=== PATIENT | male | born 1960 | race Caucasian/White ===

== ENCOUNTER 2017-09-19 12:53 | Observation (INO) ==
[2017-09-19] MEDS ORDERED: Ondansetron 4 MG/2 ML VIAL IVP ONE (13:27)
--- NOTE | 2017-09-19 13:27 | Emergency Department Note ---
Disposition Clinical Impression: Hypertensive urgency Dyspnea Qualifiers: Dyspnea type: shortness of breath Qualified Code(s): R06.02 - Shortness of breath Disposition: Admitted As Inpatient Condition: Fair Time of Disposition: 18:28 General Adult HPI - General Chief complaint: ED Shortness of Breath/Dyspnea Stated complaint: hypertension Time Seen by Provider: 09/19/17 12:55 Source: patient Limitations: no limitations Nursing Notes Reviewed: Yes Vital Signs Reviewed: Yes - History of Present Illness HPI Narrative: Mr. Love, 57-year-old male, presents from home for evaluation of dyspnea, back pain, lower extremity pain. Onset 3+ weeks ago. He was seen and evaluated at the [place] urgent care 2 days ago, told he had congestive heart failure, discharged home. Patient's and daughter note he has unilateral swelling in his left lower extremity for the last several days; results this morning. Patient has been having difficulty walking because of his lower extremity pain described as muscularpain in the thighs and calves. PMH: CAD with ACS status post MT with stent and 6 vessel CABG. COPD, hypertension, hyperlipidemia Patient has no history of DVT or PE. Platelet: Aspirin 81 Anticoagulant: None Pain Scale: 10 - Related Data Home Medications Medication Instructions Recorded Confirmed Amoxicillin 500 mg PO TID 09/19/17 09/19/17 Aspirin Enteric Coated [Aspirin EC] 81 mg PO DAILY 09/19/17 09/19/17 Potassium Chloride [Klor-Con 10] 10 meq PO DAILY 09/19/17 09/19/17 Sertraline [Zoloft] 150 mg PO DAILY 09/19/17 09/19/17 Terazosin HCl 2 mg PO HS 09/19/17 09/19/17 hydroCHLOROthiazide 25 mg PO DAILY 09/19/17 09/19/17 [Hydrochlorothiazide] Allergies Allergy/AdvReac Type Severity Reaction Status Date / Time nicotine AdvReac Unknown Verified 09/19/17 18:06 simvastatin [From Zocor] AdvReac Unknown Verified 09/19/17 18:06 All systems ED: reviewed and negative except as stated. Review of Systems: As Per HPI Past Medical History - Past Medical History Medical history: Reports: COPD, hyperlipidemia, hypertension, myocardial infarction Psychiatric history: Reports: depression - Social History Smoking Status: Current every day smoker Smokeless Tobacco Status: No Alcohol use: Reports: none Drug use: Reports: none Physical Exam Vital Signs Reviewed General: Patient is alert, oriented, and in no acute distress. HEENT: No facial asymmetry. Head is normocephalic and atraumatic. Oral mucosa moist. Trachea midline. Cardiovascular: Heart regular rate and rhythm without clicks, rubs, gallops, or murmurs. No JVD. PMI nondisplaced. No pedal edema. Bilateral posterior tibial pulses 2/4 and equal. Respiratory: Symmetric chest rise with good respiratory effort. Bilateral breath sounds are clear without wheezing, crackles, or rhonchi. Abdomen: Bowel sounds present normoactive x-4 quadrants. Abdomen is soft, nondistended, and nontender. Musculoskeletal: Muscle strength 5/5 and symmetric bilaterally in upper extremities. Neuro: Cranial nerves II through XII without deficit. Sensation light touch intact. Skin: Cool, dry, intact. Mottling over patient's lower extremities. Psych: Patient's affect is appropriate for situation. - General Limitations: no limitations General appearance: alert, in no apparent distress Course Course Narrative: Patient is a known vasculopath with coronary artery disease. He has no history of congestive heart failure. Clinically, my concerns today are DVT, PE, ACS, possible aortic pathology given his back pain and lower extremity symptoms. D-dimer is elevated at slightly above 3000. I discusses the patient is family. They are agreeable to CTA chest, abdomen, pelvis. Will provide 5 mg labetalol and IV fluids. His creatinine is slightly elevated at 1.51 however, concern for PE and/or aortic pathology is high and thus will continue with CTA. CTA chest abdomen pelvis shows no PE. Patient does have new diagnosis of 4.2 cm AAA. Venous Doppler bilateral lower extremities is negative for DVT. At this juncture, I do not have an expiration of the patient's dyspnea or lower extremity pain. Patient and family are agreeable to admission to the hospital for continued evaluation and management. At minimum, he has hypertensive urgency and will need continued therapy and modification of his home medications. I discussed the patient with the admitting hospitalist, Dr. Tirado, who agrees to accept the patient for continued evaluation and management. Vital Signs Temperature 98 F 09/19/17 12:54 Pulse Rate 74 09/19/17 12:54 Respiratory Rate 18 09/19/17 12:54 Blood Pressure 183/94 09/19/17 12:54 O2 Sat by Pulse Oximetry 99 09/19/17 12:54 Temperature 98.2 F 09/19/17 18:20 Pulse Rate 79 09/19/17 18:20 Respiratory Rate 18 09/19/17 18:20 Blood Pressure 180/100 09/19/17 18:20 O2 Sat by Pulse Oximetry 92 09/19/17 18:20 Oxygen Delivery Oxygen Delivery Room Air Medical Decision Making - Lab Data Result diagrams: 09/19/17 13:40 09/19/17 13:40 Lab Results 09/19/17 09/19/17 09/19/17 Range/Units 13:40 13:40 13:40 WBC 12.0 H (4.3-11.1) K/mcL RBC 5.62 H (4.19-5.50) M/mcL Hgb 15.3 (12.9-16.9) g/dL Hct 44.8 (37.5-50.1) % MCV 79.7 L (83.0-100.0) fL MCH 27.2 L (28.0-33.3) pg MCHC 34.2 (31.6-35.5) g/dL RDW 13.2 (11.5-14.5) % Plt Count 211 (140-400) K/mcL MPV 9.3 L (9.4-12.4) fL Immature Gran % 0.8 (0-4) % Seg Neutrophils % 81.7 % Lymphocytes % 10.4 % Monocytes % 5.2 % Eosinophils % 1.5 % Basophils % 0.4 % Neutrophils # 9.8 H (1.6-8.9) K/mcL Lymphocytes # 1.3 (0.6-4.6) K/mcL Monocytes # 0.6 (0.0-1.3) K/mcL Eosinophils # 0.2 (0.0-0.6) K/mcL Basophils # 0.1 (0.0-0.2) K/mcL D-Dimer 3500 H (0-500) ng/mLFEU Sodium 136 (136-145) mEq/L Potassium 3.9 (3.5-4.5) mEq/L Chloride 103 (98-109) mEq/L Carbon Dioxide 21 (19-29) mEq/L BUN 17 (8-26) mg/dL Creatinine 1.51 H (0.72-1.25) mg/dL Est GFR ( Amer) 58 L (> 60) Est GFR (Non-Af Amer) 48 L (> 60) BUN/Creatinine Ratio 11 (6-26) Glucose 195 H (70-99) mg/dL Calculated Osmolality 289 (280-300) Calcium 9.9 (8.6-10.8) mg/dL Troponin I (0-0.03) ng/mL B-Natriuretic Peptide (0-100) pg/mL Urine Color (Yellow) Urine Clarity (Clear) Urine pH (5.0-8.0) pH Units Ur Specific [place] (1.010-1.025) Urine Protein (Neg-Trace) mg/dL Urine Glucose (UA) (Normal) mg/dL Urine Ketones (Negative) mg/dL Urine Blood (Negative) Urine Nitrite (Negative) Urine Bilirubin (Negative) Urine Urobilinogen (Normal) mg/dL Ur Leukocyte Esterase (Negative) Urine Microscopic RBC (0-3) per hpf Urine Microscopic WBC (0-3) per hpf Ur Squamous Epith Cells (None-Few) per lpf Urine Bacteria (None-Few) per hpf Hyaline Casts (None-Few) per lpf Ur Culture Indicated? (NO) 09/19/17 09/19/17 09/19/17 Range/Units 13:40 13:40 15:18 WBC (4.3-11.1) K/mcL RBC (4.19-5.50) M/mcL Hgb (12.9-16.9) g/dL Hct (37.5-50.1) % MCV (83.0-100.0) fL MCH (28.0-33.3) pg MCHC (31.6-35.5) g/dL RDW (11.5-14.5) % Plt Count (140-400) K/mcL MPV (9.4-12.4) fL Immature Gran % (0-4) % Seg Neutrophils % % Lymphocytes % % Monocytes % % Eosinophils % % Basophils % % Neutrophils # (1.6-8.9) K/mcL Lymphocytes # (0.6-4.6) K/mcL Monocytes # (0.0-1.3) K/mcL Eosinophils # (0.0-0.6) K/mcL Basophils # (0.0-0.2) K/mcL D-Dimer (0-500) ng/mLFEU Sodium (136-145) mEq/L Potassium (3.5-4.5) mEq/L Chloride (98-109) mEq/L Carbon Dioxide (19-29) mEq/L BUN (8-26) mg/dL Creatinine (0.72-1.25) mg/dL Est GFR ( Amer) (> 60) Est GFR (Non-Af Amer) (> 60) BUN/Creatinine Ratio (6-26) Glucose (70-99) mg/dL Calculated Osmolality (280-300) Calcium (8.6-10.8) mg/dL Troponin I 0.02 (0-0.03) ng/mL B-Natriuretic Peptide 101 H (0-100) pg/mL Urine Color Yellow (Yellow) Urine Clarity Clear (Clear) Urine pH 6.0 (5.0-8.0) pH Units Ur Specific [place] > 1.030 H (1.010-1.025) Urine Protein 30 H (Neg-Trace) mg/dL Urine Glucose (UA) Normal (Normal) mg/dL Urine Ketones Trace H (Negative) mg/dL Urine Blood Negative (Negative) Urine Nitrite Negative (Negative) Urine Bilirubin Negative (Negative) Urine Urobilinogen Normal (Normal) mg/dL Ur Leukocyte Esterase Negative (Negative) Urine Microscopic RBC 0-3 (0-3) per hpf Urine Microscopic WBC 0-3 (0-3) per hpf Ur Squamous Epith Cells Moderate H (None-Few) per lpf Urine Bacteria None Seen (None-Few) per hpf Hyaline Casts None Seen (None-Few) per lpf Ur Culture Indicated? NO (NO) Attestation Statement - Attestation Attestation: I, Reymundo Wilson, examined this patient and my medical decision-making was reviewed with the HEALTH INFORMATION ASSISTANT/PA/Advanced Practice Nurse/Resident Physician. I agree with the documented findings, disposition and treatment plan as described except to the extent set forth below. 57-year-old male presents emergency Department with concerns of dyspnea, back pain, bilateral lower extremity pain. Patient states symptoms have been increasing over the past 2 weeks. States he is unable to perform daily activities at home secondary to shortness of breath as well as pain in his bilateral lower extremities. Denies recent trauma, denies previous similar symptoms. Denies fever, chills, nausea, vomiting, diarrhea. Patient had a negative initial troponin. He had an elevated d-dimer we did a CTA of his chest abdomen and pelvis to evaluate for aortic dissection as well as PE. CT scan showed a 4.2 cm abdominal aneurysm but no evidence of dissection. Bilateral Doppler of the lower extremity showed no evidence of venous thrombi embolism.
[2017-09-19 13:47] LABS: Basophils # 0.1 K/mcL (0.0-0.2); Basophils % 0.4 %; Eosinophils # 0.2 K/mcL (0.0-0.6); Eosinophils % 1.5 %; Hematocrit 44.8 % (37.5-50.1); Hemoglobin 15.3 g/dL (12.9-16.9); Immature Granulocytes % 0.8 % (0-4); Lymphocytes # 1.3 K/mcL (0.6-4.6); Lymphocytes % 10.4 %; Mean Corpuscular HGB Conc 34.2 g/dL (31.6-35.5); Mean Corpuscular Hemoglobin 27.2 pg (28.0-33.3); Mean Corpuscular Volume 79.7 fL (83.0-100.0); Mean Platelet Volume 9.3 fL (9.4-12.4); Monocytes # 0.6 K/mcL (0.0-1.3); Monocytes % 5.2 %; Neutrophils # 9.8 K/mcL (1.6-8.9); Platelet Count 211 K/mcL (140-400); Red Blood Count 5.62 M/mcL (4.19-5.50); Red Cell Distribution Width 13.2 % (11.5-14.5); Segmented Neutrophils % 81.7 %
[2017-09-19 13:59] LABS: Calcium 9.9 mg/dL (8.6-10.8); Potassium 3.9 mEq/L (3.5-4.5)
[2017-09-19] MEDS ORDERED: 0.9 % Sodium Chloride 1,000 ML IVC ONE (14:08)
[2017-09-19] MEDS ORDERED: *HR* Labetalol 100 MG/20 ML MDV IVP ONE (14:08)
[2017-09-19 15:32] LABS: Bilirubin,Urine Negative (Negative); Blood,Urine Negative (Negative); Clarity,Urine Clear (Clear); Color,Urine Yellow (Yellow); Glucose,Urine (UA) Normal (Normal); Ketones,Urine Trace mg/dL (Negative); Leukocyte Esterase,Urine Negative (Negative); Nitrite,Urine Negative (Negative); Protein,Urine 30 mg/dL (Neg-Trace); Specific Gravity,Urine > 1.030 (1.010-1.025); Urobilinogen,Urine Normal (Normal)
[2017-09-19 15:35] LABS: Bacteria,Urine None Seen per hpf (None-Few); Hyaline Casts,Urine None Seen per lpf (None-Few); RBC,Urine 0-3 per hpf (0-3); Squamous Epithelial Cell,Urine Moderate per lpf (None-Few); WBC,Urine 0-3 per hpf (0-3)
[2017-09-19] MEDS ORDERED: Acetaminophen 325 MG TABLET PO PRN (21:08)
[2017-09-19] MEDS ORDERED: Naloxone 0.4 MG/ML INJ IVP PRN (21:08)
[2017-09-19] MEDS ORDERED: Ondansetron 4 MG/2 ML VIAL IVP PRN (21:08)
[2017-09-19] MEDS ORDERED: *HR* Morphine 2 MG/ML SYRINGE IVP PRN (21:08)
--- NOTE | 2017-09-19 21:33 | Internal Med History&Physical ---
<SariahmannhomerKole real - Last Filed: 09/19/17 23:20> Date of Encounter: 09/19/17 Time of Encounter: 19:30 Assessment and Plan (1) Hypertensive urgency Current visit: Yes Status: Acute Acute HTN on admission. Pt. reports BP of 210/109 taken by glass setter. Denies previous hx of occurrence. Pt. also reports SOB/dyspnea w/HTN sx. Pt. has hx of previous MIs in 2002 w/stent x2 and 2009 w/sextuple bypass. Labetolol given in ED. Monitor patient's vital signs. BP at 21:30 was 171/104. Continue patient's terazosin and hydrochlorothiazide in a.m. Add lasix 20 mg IVP NOW. Will add Labetolol 10 mg IVP Q2HR PRN. Add Norvasc 5 mg PO now. Continuous cardiac telemetry. Pt. is at high risk for cardiac event and further morbidity based on current sx, hx of previous MIs, and risk factors of HLD, HTN, and tobacco abuse. Observation. (2) Dyspnea Current visit: Yes Status: Acute Acute SOB/dyspnea for the past two days. Pt. was dx at [facility] w/CHF two days ago and discharged. Denies use of home O2. Current SpO2 is 93% on RA. Denies SOB during exam. O2 and SpO2 monitoring PRN. Qualifiers: Dyspnea type: shortness of breath Qualified Code(s): R06.02 - Shortness of breath; R06.00 - Dyspnea, unspecified; R06.01 - Orthopnea (3) Abdominal aortic aneurysm (AAA) Current visit: Yes Status: Acute CTA of the abdomen today shows moderate severe amount of soft plaque is identified within the abdominal aorta which places her at risk for embolism. There is evidence of infrarenal abdominal aortic aneurysm measuring 4.2 cm w/ recommendation for f/u every year and recommendation for vascular consult. Vascular consult ordered. Qualifiers: Presence of rupture: without rupture Qualified Code(s): I71.4 - Abdominal aortic aneurysm, without rupture (4) Elevated d-dimer Current visit: Yes Status: Acute Acutely elevated D-dimer of 3500 on admission. Concern is for PE d/t SOB/ dyspnea or DVT d/t LE pain. CTA of chest today shows no evidence of pulmonary embolism or acute pulmonary abnormality. Bilateral venous Doppler duplex imaging shows normal superficial and deep exam. (5) GERD (gastroesophageal reflux disease) Current visit: Yes Status: Chronic Hx of chronic GERD. Pt. states he takes medicine as needed. IVP Zofran Q6 PRN. Prilosec ordered PO daily. Qualifiers: Esophagitis presence: esophagitis presence not specified Qualified Code(s) : K21.9 - Gastro-esophageal reflux disease without esophagitis (6) Tobacco abuse Current visit: Yes Status: Chronic Hx of chronic tobacco abuse. Pt. reports smoking 1/2 PPD. Denies interest in currently quitting. 14 mg nicotine patch ordered daily. (7) COPD (chronic obstructive pulmonary disease) Current visit: Yes Status: Chronic Hx of chronic COPD d/t tobacco abuse. Stable. Pt. denies use of home O2 and current SpO2 is 93% on RA. Denies SOB during exam. O2 and SpO2 monitoring PRN. Qualifiers: COPD type: unspecified COPD Qualified Code(s): J44.9 - Chronic obstructive pulmonary disease, unspecified (8) HLD (hyperlipidemia) Current visit: Yes Status: Chronic Hx of chronic HLD. Pt. reports taking Zocor previously but does not currently take statin. Lipid panel in a.m. labs. Qualifiers: Hyperlipidemia type: pure hypercholesterolemia Qualified Code(s): E78.00 - Pure hypercholesterolemia, unspecified; E78.0 - Pure hypercholesterolemia (9) HTN (hypertension) Current visit: Yes Status: Chronic Hx of chronic HTN. Monitor pt. and VS. Continue pts Zosyn and hydrochlorothiazide. Qualifiers: Hypertension type: essential hypertension Qualified Code(s): I10 - Essential (primary) hypertension (10) Previous myocardial infarction older than 8 weeks Current visit: Yes Status: Resolved Hx of chronic MIs in 2002 w/placement of stents x2 and in 2009 which required sextuple bypass. Pt. denies chest pain or palpitations. Initial troponin 0.02. Will trend x2. Continuous cardiac telemetry. Continue patient's aspirin therapy , potassium chloride, hydrochlorothiazide, and terazosin. (11) CHF (congestive heart failure) Current visit: Yes Status: Chronic Pt. recently diagnosed w/CHF two days ago at [facility] and discharged home. No pedal edema on exam. BNP ordered. Pt. is SOB most likely d/t COPD and current tobacco abuse. Pt. does not appear fluid overloaded and denies taking lasix. Monitor pt. closely. Qualifiers: Congestive heart failure type: unspecified congestive heart failure type Congestive heart failure chronicity: unspecified congestive heart failure chronicity Qualified Code(s): I50.9 - Heart failure, unspecified (12) DVT prophylaxis Current visit: Yes Status: Acute Heparin 5,000 units SQ Q8 for DVT prophylaxis. Monitor pt. for signs of bleeding. Internal Medicine - H&P: HPI Chief complaint: High Blood Pressure Admitted From: Emergency Dept Plans for Post Hospital Care: Home History of present illness: Mr. Love is a 57 year old male with medical hx of COPD and CHF, HLD, HTN, GERD , and previous myocardial infarctions in 2002 with placement of 2 stents in 2009 with open heart surgery requiring sextuple bypass presents from the ED with chief complaint of high blood pressure that began this morning w/o exertion. Pt. states that his BP taken by glass setter was 210/109. He reports he was SOB/dyspneic as well. He states that he has been nauseous with back pain and bilateral LE pain for 3 weeks. He reports he went to the [facility] urgent care two days ago for same sx and was dx as CHF and discharged. Denies hx of DVT or PE. Pt. also denies recent illness, fever, vomiting, headache, chest pain, palpitations, changes in vision, unusual bleeding, cough, abdominal pain, diarrhea, constipation, dizziness, pre-syncope, or syncope. Past Med Surg Social Fam HX - Past Medical History Source: patient, old records reviewed Medical history: CHF (Recent dx at [facility]), COPD, GERD, hyperlipidemia, hypertension, myocardial infarction (2002 x2 stents, 2009 sextuple bypass) Psychiatric history: depression - Past Surgical History Surgical History: angioplasty/stent (x2), coronary bypass (CABG) (Sextuple bypass) - Social History Smoking Status: Current every day smoker Packs per day: 1/2 PPD Smokeless Tobacco Status: No Alcohol use: none Drug use: none Current living situation: Home, With Family Activity Level: Independent ambulation Recent Out of Country Travel Within the Last 8 Weeks: No Exposure or Possible Exposure to Illness During Travel: No - Family History Father Race: Family Member Ethnicity: Non- Living Status: Age at : 71 Cause of : CHF Hx Family Cardiac Disorders: Yes (CHF, CAD, UT) Hx Family Endocrine Disorder: Yes (DM) Mother Race: Family Member Ethnicity: Non- Living Status: Age at : 75 Cause of : CAD Hx Family Cardiac Disorders: Yes (CAD) Hx Family Endocrine Disorder: Yes (DM) Sister Race: Family Member Ethnicity: Non- Living Status: Still Living Hx Family GI Disorders: Yes (Colitis) Internal Medicine - H&P: Meds Amoxicillin 500 mg PO TID 09/19/17 [History] Aspirin Enteric Coated [Aspirin EC] 81 mg PO DAILY 09/19/17 [History] Potassium Chloride [Klor-Con 10] 10 meq PO DAILY 09/19/17 [History] Sertraline [Zoloft] 150 mg PO DAILY 09/19/17 [History] Terazosin HCl 2 mg PO HS 09/19/17 [History] hydroCHLOROthiazide [Hydrochlorothiazide] 25 mg PO DAILY 09/19/17 [History] 3 Allergy/AdvReac Type Severity Reaction Status Date / Time nicotine AdvReac Unknown Verified 09/19/17 18:06 simvastatin [From Zocor] AdvReac Unknown Verified 09/19/17 18:06 All Systems PM: A 10-system review of systems was performed and is negative for pertinent findings except as documented above in the HPI. - Constitutional Constitutional: as per HPI, no chills, no fever(s), no night sweats - EENT Eyes: no change in vision, no discharge, no pain, no photophobia Ears: no ear discharge, no ear pain, no tinnitus Nose, mouth and throat: no dysphagia, no nasal discharge, no neck pain, no sore throat - Breasts Breasts: as per HPI - Cardiovascular Cardiovascular ROS IM: as per HPI, dyspnea, dyspnea on exertion - Respiratory Respiratory: as per HPI, dyspnea, dyspnea on exertion - Gastrointestinal Gastrointestinal: as per HPI, nausea, no abdominal pain, no diarrhea, no hematemesis, no hematochezia, no melena, no vomiting - Genitourinary Genitourinary ROS male: as per HPI - Musculoskeletal Musculoskeletal ROS IM: as per HPI, back pain, other (Bilateral LE pain in upper thighs) - Integumentary Integumentary IM: no rash, no unusual bruising - Neurological Neurological ROS: no confusion, no convulsions, no focal weakness, no numbness, no tingling, no tremor(s) - Psychiatric Psychiatric: as per HPI - Endocrine Endocrine IM: as per HPI - Hematologic/Lymphatic Hematologic/Lymphatic: no easy bruising - Allergic/Immunologic Allergic/Immunologic: as per HPI - Constitutional Vitals: Temp Pulse Resp BP Pulse Ox 98.2 F 79 18 180/100 92 09/19/17 18:20 09/19/17 18:20 09/19/17 18:20 09/19/17 18:20 09/19/17 18:20 General appearance: Present: cooperative, A&O X 3, pleasant, no acute distress, obese, answers questions appropriately - Head Head exam: Present: atraumatic, normal inspection, normocephalic - Eye Eye exam: Present: PERRL, conjuntiva pink, sclera anicteric Pupils: Present: PERRL - ENT ENT exam: Present: normal exam, normal external ear exam - Neck Neck exam general surgery: Present: normal inspection, supple, trachea midline. Absent: lymphadenopathy - Respiratory Respiratory exam: Present: CTAB. Absent: accessory muscle use, rales, rhonchi, wheezes - Cardiovascular Cardiovascular exam: Present: RRR, +S1, +S2. Absent: diastolic murmur, gallop, rubs, systolic murmur - GI/Abdominal GI/Abdominal exam: Present: normal bowel sounds, soft, no peritoneal signs. Absent: distended, tenderness - Rectal Rectal exam: Present: deferred - Additional comments: exam deferred. - Extremities Exam Extremities exam: Present: calf tenderness (LLE), warm, radial pulses palpable and symmetrical. Absent: cyanotic, pedal edema - Back Exam Back exam: Present: normal inspection - Neurological Exam Neurological exam: Present: CN II-XII intact, oriented X3, no focal deficits. Absent: pronater drift, facial droop, speech deficit - Psychiatric Psychiatric exam: Present: normal affect, normal mood - Skin Skin exam: Present: dry, intact Internal Med - H&P Results - Labs CBC & Chem 7: 09/19/17 13:40 09/19/17 13:40 - Diagnostic Studies Other Images Additional comments: Impressions Abdomen/Pelvis CTA 09/19/17 14:06 IMPRESSION: Moderate to severe amount of soft plaque is identified within the abdominal aorta which places the patient at risk for distal embolization. Infrarenal abdominal aortic aneurysm measuring 4.2 cm. Fatty infiltration within the liver. Mild diverticulosis. RECOMMENDATIONS: Managing Abdominal Aortic Aneurysms 2.6-2.9 cm: Every 5 years* 3.0-3.4 cm: Every 3 years. 3.5-3.9 cm: Every 1 year. 4.0-4.4 cm: Every 1 year. Recommend vascular consultation. 4.5-5.4 cm: Every 6 months. Recommend vascular consultation. Greater than or equal to 5.5 cm: Referral to vascular surgeon. *For abdominal aortas with maximum diameter of 2.6-2.9 cm meeting criteria for AAA (>50% of proximal normal segment). Reference: J Vasc Surg. 2008;50(4 Suppl):S2-49 D/ : / 09/19/2017 15:28:58 Valdez Rosas MD / shaneka Interpreting Provider: Valdez Rosas MD Chest CTA 09/19/17 14:06 IMPRESSION: No evidence of pulmonary embolism or acute pulmonary abnormality. Small left-sided pericardial lymph node measuring 8 mm of doubtful clinical significance. Mild left lower lobe atelectasis. Moderate amount of soft atherosclerotic plaque within the descending thoracic aorta. No evidence of aortic aneurysm. D/ / 09/19/2017 15:19:23 Valdez Rosas MD / fe Interpreting Provider: Valdez Rosas MD Chest x-ray Additional comments: Impressions Chest X-Ray 09/19/17 13:27 IMPRESSION: 1. No active pulmonary disease. 2. Increase in the bronchovascular markings likely due to chronic inflammation. D/ / Elia Scanlon MD / Elia Scanlon MD Interpreting Provider: Elia Scanlon MD <Jeison Duarte - Last Filed: 09/20/17 06:25> Date of Encounter: 09/20/17 Internal Medicine - H&P: HPI History of present illness: Mr. Love is a 57 year old male All Systems PM: A 10-system review of systems was performed and is negative for pertinent findings except as documented above in the HPI. - Constitutional Vitals: Temp Pulse Resp BP Pulse Ox 98.2 F 90 16 147/82 94 09/20/17 04:22 09/20/17 04:22 09/20/17 04:22 09/20/17 04:22 09/20/17 04:22 Internal Med - H&P Results - Labs CBC & Chem 7: 09/20/17 03:34 09/20/17 03:34 Labs: Short CBC 09/20/17 Range/Units 03:34 WBC 13.2 H (4.3-11.1) K/mcL Hgb 15.3 (12.9-16.9) g/dL Hct 44.7 (37.5-50.1) % Plt Count 210 (140-400) K/mcL Neutrophils # 10.3 H (1.6-8.9) K/mcL BMP 09/20/17 03:34 Sodium 137 Potassium 3.9 Chloride 100 Carbon Dioxide 26 BUN 18 Creatinine 1.63 H Glucose 137 H Calcium 10.0 Cardiac Enzymes 09/19/17 09/20/17 Range/Units 21:48 03:34 Troponin I 0.03 0.05 H* (0-0.03) ng/mL Liver Function 09/20/17 Range/Units 03:34 Total Bilirubin 1.2 (0.2-1.2) mg/dL AST 59 H (5-34) Units/L ALT 30 (0-55) Units/L Alkaline Phosphatase 133 H (38-126) Units/L Albumin 3.7 (3.5-5.0) g/dL - Attending Attestation I conducted a face to face diagnostic evaluation of this patient and my medical decision-making was reviewed with the Nurse Practitioner. I agree with the documented findings, disposition and treatment plan as described except to the extent set forth below: Patient was supposedly recently diagnosed with congestive heart failure at the [facility]. We will obtain an echocardiogram to assess ejection fraction and diastolic dysfunction. We will give 1 dose of Lasix. Consider HCTZ on discharge.
[2017-09-19] MEDS: *HR* Heparin 5,000 UNIT/ML VIAL SQ SCH (22:08)
[2017-09-19] MEDS ORDERED: *HR* Labetalol 20 MG/4 ML SYRINGE IVP PRN (23:13)
[2017-09-19] MEDS ORDERED: Furosemide 20 MG/2 ML VIAL IVP ONE (23:13)
[2017-09-19] MEDS: amLODIPine 5 MG TABLET PO SCH (23:55)
[2017-09-20] MEDS ORDERED: *HR* Labetalol 20 MG/4 ML SYRINGE IVP PRN (02:37)
[2017-09-20 03:43] LABS: Basophils % 0.3 %; Eosinophils # 0.3 K/mcL (0.0-0.6); Eosinophils % 2.3 %; Hematocrit 44.7 % (37.5-50.1); Hemoglobin 15.3 g/dL (12.9-16.9); Immature Granulocytes % 0.7 % (0-4); Immature Platelets 3.2 % (1.1-6.1); Lymphocytes # 1.4 K/mcL (0.6-4.6); Mean Corpuscular HGB Conc 34.2 g/dL (31.6-35.5); Mean Corpuscular Hemoglobin 27.5 pg (28.0-33.3); Mean Corpuscular Volume 80.3 fL (83.0-100.0); Mean Platelet Volume 9.1 fL (9.4-12.4); Monocytes % 7.8 %; Neutrophils # 10.3 K/mcL (1.6-8.9); Platelet Count 210 K/mcL (140-400); Red Blood Count 5.57 M/mcL (4.19-5.50); Red Cell Distribution Width 13.3 % (11.5-14.5); Segmented Neutrophils % 77.9 %
[2017-09-20 03:47] LABS: INR 1.1; Prothrombin Time 11.8 Seconds (9.4-12.1)
[2017-09-20 03:50] LABS: Activated Partial Thrombo Time 29.6 Seconds (26.0-36.0)
[2017-09-20 03:57] LABS: Albumin 3.7 g/dL (3.5-5.0); Albumin/Globulin Ratio 0.8 (1.1-2.2); Bilirubin,Total 1.2 mg/dL (0.2-1.2); Chol/HDL Ratio 8.6 (0-4.9); Globulin 4.6 g/dL (2.4-3.5); Potassium 3.9 mEq/L (3.5-4.5); Total Protein 8.3 g/dL (6.0-8.3)
[2017-09-20] MEDS: *HR* HYDROcodone/Acet 5/325 mg TABLET PO PRN ×2 (04:39→09:20)
[2017-09-20] MEDS: *HR* Heparin 5,000 UNIT/ML VIAL SQ SCH ×2 (06:40→15:47)
--- NOTE | 2017-09-20 08:55 | Vascular/Endovasc Consult Note ---
Date of Encounter: 09/20/17 Time of Encounter: 08:30 Assessment and Plan (1) Abdominal aortic aneurysm (AAA) Current Visit: Yes Status: Chronic The pathophysiology and natural history of abdominal aortic aneurysms was discussed with the patient and all questions were answered. The patient has an infrarenal abdominal aortic aneurysm. His aneurysm measure 4.2cm in diameter when measured across the long axis. The aneurysm measures 3.8cm along the short axis. The is no evidence of periaortic inflammation. There is no evidence of rupture. The is no evidence of dissection. There is expected mural thrombus within the aneurysm. The patient denies any abdominal or flank pain. He denies any acute back pain. He has no abdominal, flank or back tenderness. There is no indication for repair of his aneurysm at this time. An aortic ultrasound is recommended in 6-12 months. The study will be arranged by my office and a follow-up appointment will be scheduled. Qualifiers: Presence of rupture: without rupture Qualified Code(s): I71.4 - Abdominal aortic aneurysm, without rupture (2) Hypertensive urgency Current Visit: Yes Status: Acute His blood pressure is currently stable at 123/85. (3) COPD (chronic obstructive pulmonary disease) Current Visit: Yes Status: Chronic Qualifiers: COPD type: unspecified COPD Qualified Code(s): J44.9 - Chronic obstructive pulmonary disease, unspecified (4) HLD (hyperlipidemia) Current Visit: Yes Status: Chronic The patient was counseled regarding atherosclerotic risk factor reduction. Qualifiers: Hyperlipidemia type: pure hypercholesterolemia Qualified Code(s): E78.00 - Pure hypercholesterolemia, unspecified; E78.0 - Pure hypercholesterolemia (5) HTN (hypertension) Current Visit: Yes Status: Chronic Qualifiers: Hypertension type: essential hypertension Qualified Code(s): I10 - Essential (primary) hypertension (6) Tobacco abuse Current Visit: Yes Status: Chronic The patient was counseled regarding smoking cessation. - History of Present Illness Consult date: 09/20/17 Requesting physician: Jeison Duarte Consult reason: Infrarenal Abdominal Aortic Aneurysm Chief complaint: Shortness of breath History of present illness: Mr. Love is a 57 year old male with a history of COPD, hypertension, hyperlipidemia, coronary artery disease and tobacco abuse. The patient was seen in the emergency room on 09/19/17 due to shortness of breath. As part of his evaluation he underwent a CTA of the abdomen and pelvis and an abdominal aortic aneurysm was identified. Vascular surgery has been consulted this morning regarding his abdominal aortic aneurysm. The patient currently denies any acute abdominal, flank or back pain. He does report chronic lower back pain and chronic leg pain. He denies chest pain or shortness of breath. Past Med Surg Social Fam HX - Past Medical History Medical history: CHF (Recent dx at [place] urgent care), COPD, GERD, hyperlipidemia, hypertension, myocardial infarction (2002 x2 stents, 2009 sextuple bypass) Psychiatric history: depression - Past Surgical History Surgical History: angioplasty/stent (x2), coronary bypass (CABG) (Sextuple bypass) - Social History Smoking Status: Current every day smoker Packs per day: 1/2 PPD Smokeless Tobacco Status: No Alcohol use: none Drug use: none - Family History Father Race: Family Member Ethnicity: Non- Living Status: Age at : 71 Cause of : CHF Hx Family Cardiac Disorders: Yes (CHF, CAD, [place]) Hx Family Endocrine Disorder: Yes (DM) Mother Race: Family Member Ethnicity: Non- Living Status: Age at : 75 Cause of : CAD Hx Family Cardiac Disorders: Yes (CAD) Hx Family Endocrine Disorder: Yes (DM) Sister Race: Family Member Ethnicity: Non- Living Status: Still Living Hx Family GI Disorders: Yes (Colitis) Medications and Allergies Amoxicillin 500 mg PO TID 09/19/17 [History] Aspirin Enteric Coated [Aspirin EC] 81 mg PO DAILY 09/19/17 [History] Potassium Chloride [Klor-Con 10] 10 meq PO DAILY 09/19/17 [History] Sertraline [Zoloft] 150 mg PO DAILY 09/19/17 [History] Terazosin HCl 2 mg PO HS 09/19/17 [History] hydroCHLOROthiazide [Hydrochlorothiazide] 25 mg PO DAILY 09/19/17 [History] 3 Allergy/AdvReac Type Severity Reaction Status Date / Time nicotine AdvReac Unknown Verified 09/19/17 18:06 simvastatin [From Zocor] AdvReac Unknown Verified 09/19/17 18:06 All Systems Review: A 10-system review of systems was performed and is negative for pertinent findings except as documented above in the HPI. - Constitutional Constitutional: no fever(s) - Cardiovascular Cardiovascular: no chest pain at rest, no dyspnea at rest - Gastrointestinal Gastrointestinal: no abdominal pain Exam Vital Signs, Last 4 Hours Temp Pulse Resp BP Pulse Ox 09/20/17 07:19 98.1 F 83 16 123/85 96 General: Present: Conversant, No Apparent Distress, Well developed HEENT: Present: Atraumatic, Trachea midline, Pupils equal Neck: Absent: JVD, Lymphadenopathy, Left Carotid bruit, Right Carotid bruit Cardiac: Present: Reg Rate and Rhythm, Normal S1 and S2 Lungs: Present: Normal Breath Sounds, No Wheeze, Rales, Rhonchi Neuro: Present: Alert and responsive, No focal deficits noted, Cranial nerves grossly intact, Motor nerves grossly intact, Sensory nerves grossly intact Abdomen: Present: Soft, Non-tender. Absent: Hepatosplenomegaly, Masses Vascular: Present: Normal capillary refill, Pulse, normal (3+ pedals bilaterally ), Color/Temperature (warm). Absent: Cyanosis, Edema Skin: Present: No rashes noted on visualized skin Musculoskeletal: Present: No Chest Wall Tenderness Consult Discharge Plan - Plan Referrals: NONE,PCP [Primary Care Provider] - Joao Alvarez MD [Partnered Physician] - (6 months. Office will arrange aortic duplex prior to appointment.)
[2017-09-20] MEDS ORDERED: hydroCHLOROthiazide 25 MG TABLET PO SCH (09:00)
[2017-09-20] MEDS ORDERED: Aspirin Enteric Coated 81 MG Tablet PO SCH (09:00)
[2017-09-20] MEDS: amLODIPine 5 MG TABLET PO SCH (09:17)
[2017-09-20] MEDS ORDERED: Ketorolac 30 MG/ML VIAL IVP ONE (10:57)
--- NOTE | 2017-09-20 15:58 | Discharge Summary ---
Date of Encounter: 09/20/17 Time of Encounter: 11:00 - Discharge Medications Prescriptions: amLODIPine [Norvasc] 5 mg PO DAILY #30 tablet Home Medications: Amoxicillin 500 mg PO TID 09/19/17 [History] Aspirin Enteric Coated [Aspirin EC] 81 mg PO DAILY 09/19/17 [History] Potassium Chloride [Klor-Con 10] 10 meq PO DAILY 09/19/17 [History] Sertraline [Zoloft] 150 mg PO DAILY 09/19/17 [History] Terazosin HCl 2 mg PO HS 09/19/17 [History] hydroCHLOROthiazide [Hydrochlorothiazide] 25 mg PO DAILY 09/19/17 [History] amLODIPine [Norvasc] 5 mg PO DAILY #30 tablet 09/20/17 [Rx] Allergies/Adverse Reactions: 3 Allergy/AdvReac Type Severity Reaction Status Date / Time nicotine AdvReac Unknown Verified 09/19/17 18:06 simvastatin [From Zocor] AdvReac Unknown Verified 09/19/17 18:06 Procedures/tests Complete & Pending: Procedures Performed prior 72 hours Category Date Time Status EV echocardiogram Routine Y 09/20/17 06:23 Completed Date of admission: 09/19/17 17:05 Primary care physician: PCP NONE Consults: 09/19/17 21:16 Consult to Perianesthesia Manager [CONS] Routine Reason for SW Consult: Please assess patient for possible home needs for post -discharge planning. 09/19/17 23:14 Consult to Vascular Surgery [CONS] Routine Consulting Provider: Vascular Surgery Linda Reason for Consult: CTA of abdomen today shows moderate to severe amount of soft plaque identified within the abdominal aorta which places pt. at risk for embolism. There is also evidence of infrarenal abdominal aortic aneurysm measuring 4.2 cm. Call Completed: No - Patient Status Disposition: Home, Self-Care Condition: Fair - Discharge Instructions Instructions: Peripheral Vascular Disorders (DC), Chronic Hypertension (DC) Follow Up With: Joao Alvarez MD [Partnered Physician] - (6 months. Office will arrange aortic duplex prior to appointment.) NONE,PCP [Primary Care Provider] - Hospital course: Patient is a 57-year-old male with past medical history significant for ischemic cardiomyopathy with COPD, HLD, HTN, GERD, and previous myocardial infarctions in 2002 with placement of 2 stents in 2009 with open heart surgery requiring sextuple bypass who presented to the ER with elevated blood pressures. Patient reported that blood pressures taken by EMS was 210/109. He reports he was SOB/dyspneic as well. He states that he has been nauseous with back pain and bilateral LE pain for 3 weeks. He reports he went to the [facility] urgent care two days ago for same symptoms and was diagnosed as CHF and discharged. In the ER, patient was found to have a BP of 171/104. Patient was admitted to the medical floor for hypertension management. During patients hospital stay, a calcium channel poppy was started and now patients blood pressure is within normal limits. Lower extremity Dopplers were done which were negative and CTPA was negative for pulmonary embolism. The patient was found to have an infrarenal abdominal aortic aneurysm and vascular was consulted. His aneurysm measure 4.2cm in diameter when measured across the long axis. The aneurysm measures 3.8cm along the short axis. There is no evidence of rupture. There is no evidence of dissection. There is expected mural thrombus within the aneurysm. No indication for repair of his aneurysm at this time. An aortic ultrasound is recommended in 6-12 months. The study will be arranged by vascular office and a follow-up appointment will be scheduled. Patient will follow up with the [facility] for CHF management and chronic lower back pain management. - Time Spent with Patient Total time spent providing and/or coordinating discharge services: Less than 30 minutes - Constitutional Vitals: Temp Pulse Resp BP Pulse Ox 98.1 F 88 16 164/98 99 09/20/17 15:20 09/20/17 15:20 09/20/17 15:20 09/20/17 15:20 09/20/17 15:20 General appearance: Present: cooperative, A&O X 3, pleasant, no acute distress, obese, answers questions appropriately - Respiratory Respiratory exam: Present: CTAB. Absent: accessory muscle use, rales, rhonchi, wheezes - Cardiovascular Cardiovascular exam: Present: RRR, +S1, +S2. Absent: diastolic murmur, gallop, rubs, systolic murmur
[2017-09-20 16:36] VITALS: BP 147/81
--- NOTE | 2017-09-21 13:59 | Electrocardiograph Report ---
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
== END 2017-09-20 20:36 | disposition home or self-care (01) ==
LOC: 2NENU 12:53 → EMEROO 12:53 → SUATTDRO 17:05 → 2NENU 18:11
PROVIDERS: ADMIT Internal Medicine; ATTEND Hospitalist

== ENCOUNTER 2018-04-09 19:11 | Inpatient (IN) ==
[2018-04-09 20:08] LABS: Basophils # 0.1 K/mcL (0.0-0.2); Basophils % 0.6 %; Eosinophils # 0.3 K/mcL (0.0-0.6); Eosinophils % 2.4 %; Hematocrit 43.3 % (37.5-50.1); Hemoglobin 14.9 g/dL (12.9-16.9); Immature Granulocytes % 0.5 % (0-4); Lymphocytes # 1.6 K/mcL (0.6-4.6); Lymphocytes % 15.5 %; Mean Corpuscular HGB Conc 34.4 g/dL (31.6-35.5); Mean Corpuscular Hemoglobin 27.7 pg (28.0-33.3); Mean Corpuscular Volume 80.6 fL (83.0-100.0); Monocytes # 0.6 K/mcL (0.0-1.3); Monocytes % 6.1 %; Neutrophils # 7.8 K/mcL (1.6-8.9); Platelet Count 234 K/mcL (140-400); Red Blood Count 5.37 M/mcL (4.19-5.50); Red Cell Distribution Width 13.4 % (11.5-14.5); Segmented Neutrophils % 74.9 %
[2018-04-09 20:28] LABS: Albumin 4.5 g/dL (3.5-5.7); Albumin/Globulin Ratio 1.3 (1.1-2.2); Bilirubin,Total 0.9 mg/dL (0.3-1.0); Calcium 10.3 mg/dL (8.6-10.3); Globulin 3.6 g/dL (2.4-3.5); Total Protein 8.1 g/dL (6.4-8.9)
[2018-04-09 20:33] LABS: Troponin I 0.6 ng/mL (< 0.04)
[2018-04-09] MEDS ORDERED: Aspirin 81 MG TAB.CHEW PO ONE (20:41)
[2018-04-09] MEDS ORDERED: Nitroglycerin 0.4 MG TAB.SUBL SL ONE (20:41)
--- NOTE | 2018-04-09 20:57 | Emergency Department Note ---
Disposition Clinical Impression: NSTEMI (non-ST elevated myocardial infarction) Disposition: Home, Self-Care Condition: Critical Chest Pain HPI - General Chief Complaint: ED Chest Pain Stated Complaint: Chest Pain/nausea/diaphoretic Time Seen by Provider: 04/09/18 20:21 Source: patient Limitations: no limitations Vital Signs Reviewed: Yes Nursing Notes Reviewed: Yes - History of Present Illness HPI Narrative: Mr. Love, 4-year-old male, presents from home for evaluation of chest pain. Onset 10 AM this morning at rest. Worse with exertion. Described as left parasternal. Described as a heaviness. Nonradiating. With associated nausea. No vomiting, dyspnea, or diaphoresis. Chest pain rated 7-8/10 and is most intense. Now 3-4/10. It is been constant in nature throughout the day. Very similar to him as his prior WA. Patient should be on aspirin but ran out and has not taken any for the last week. Hospitality Director: OR Cardiac history: Stent 2, CABG. Last it was 2002. Data recent carotid endarterectomy at the OR and states, at that time, they shot dye around his heart and, "there was one small blockage but everything was fine." Severity scale (1-10): 6 - Related Data Home Medications Medication Instructions Recorded Confirmed Aspirin Enteric Coated [Aspirin EC] 81 mg PO DAILY 09/19/17 04/09/18 Potassium Chloride [Klor-Con 10] 10 meq PO DAILY 09/19/17 04/09/18 Sertraline [Zoloft] 150 mg PO DAILY 09/19/17 04/09/18 Terazosin HCl 2 mg PO HS 09/19/17 04/09/18 hydroCHLOROthiazide 25 mg PO DAILY 09/19/17 04/09/18 [Hydrochlorothiazide] Omeprazole [PriLOSEC] 40 mg PO DAILY 04/09/18 04/09/18 Previous Rx's Medication Instructions Recorded amLODIPine [Norvasc] 5 mg PO DAILY #30 tablet 09/20/17 Allergies Allergy/AdvReac Type Severity Reaction Status Date / Time nicotine AdvReac Unknown Verified 04/09/18 19:18 simvastatin [From Zocor] AdvReac Unknown Verified 04/09/18 19:18 All systems ED: reviewed and negative except as stated. Review of Systems: As Per HPI Chest Pain PMH - Past Medical History Medical history: Reports: CHF, COPD, GERD, hyperlipidemia, hypertension, myocardial infarction Surgical history: Reports: angioplasty/stent (x2), coronary bypass (CABG) ( Sextuple bypass) Psychiatric history: Reports: depression - Social History Smoking Status: Current every day smoker Alcohol use: Reports: none Drug use: Reports: none Physical Exam Vital Signs Reviewed General: Patient is alert, oriented, and in moderate discomfort from his chest pain and nausea. Head: atraumatic, normocephalic Eye: normal appearance, no scleral icterus, no conjunctival injection ENT: mucous membranes moist, normal external ear exam Neck: normal inspection, trachea midline, full ROM Chest: normal inspection, symmetric chest rise Respiratory: Good respiratory effort. Bilateral breath sounds are clear without wheezing, crackles, or rhonchi. Cardiovascular: Regular rate and rhythm. No clicks, rubs, gallops, or murmors. Normal heart sounds. Abdomen: Bowel sounds present normoactive x-4 quadrants. Abdomen is soft, nondistended, and nontender. No guarding or rebound. No organomegaly noted. Musculoskeletal: Spontaneously moving all extremities. Skin: warm, dry, intact. Neuro: Alert and oriented x4. Sensation light touch intact. Psych: Patient's affect is appropriate for situation. - General Limitations: no limitations General appearance: alert Course Course Narrative: Patient's cardiac history and symptoms are concerning for cardiac etiology. Initial troponin 0.6 in the setting of normal renal function. Initial EKG concerning for ST changes. Repeat EKG continues to show mild ST changes. My attending spoke with interventional cardiology, Dr. Cosme, who recommends heparing bolus, heparin drip, aspirin, plavix; EKGs did not meed STEMI criteria. Will hold nitro at this time as patient's systolic BP is soft (104 on intake) as well as possibility of inferior cardiac pathology. Patient's interval EKG did improve as did his chest pain (now 2/10). Patient requests his nightly dose of Prilosec for his heartburn. Will provide 40 mg capsule. EKG #1 EKG dated 09 29 2018 at 19:24 interpreted as sinus rhythm with rate of 96. Normal intervals SD 164, QRS 113, QTC 399. One to [address] elevation in inferior leads. Compared to previous EKG dated 09/19/2017 showing concerning ischemic changes in inferior leads. EKG #2 EKG dated 04/09/18 at 20:44 interpreted as sinus rhythm with rate of 80. Normal intervals of SD 148, QRS 123, QTC 419. ST elevation is approximately 1 mm; improved from prior EKG. Vital Signs Temperature 98 F 04/09/18 19:19 Pulse Rate 104 04/09/18 19:19 Respiratory Rate 20 04/09/18 19:19 Blood Pressure 104/60 04/09/18 19:19 O2 Sat by Pulse Oximetry 94 04/09/18 19:19 Temperature 97.9 F 04/09/18 23:33 Pulse Rate 65 04/09/18 23:33 Respiratory Rate 19 04/09/18 23:33 Blood Pressure 145/79 04/09/18 23:33 O2 Sat by Pulse Oximetry 97 04/09/18 23:33 Oxygen Delivery Oxygen Delivery Room Air Chest Pain - Lab Data Result diagrams: 04/09/18 21:16 04/10/18 01:23 Lab Results 04/09/18 04/09/18 04/09/18 Range/Units 19:40 19:40 19:40 WBC 10.4 (4.3-11.1) K/mcL RBC 5.37 (4.19-5.50) M/mcL Hgb 14.9 (12.9-16.9) g/dL Hct 43.3 (37.5-50.1) % MCV 80.6 L (83.0-100.0) fL MCH 27.7 L (28.0-33.3) pg MCHC 34.4 (31.6-35.5) g/dL RDW 13.4 (11.5-14.5) % Plt Count 234 (140-400) K/mcL MPV 10.0 (9.4-12.4) fL Immature Gran % 0.5 (0-4) % Seg Neutrophils % 74.9 % Lymphocytes % 15.5 % Monocytes % 6.1 % Eosinophils % 2.4 % Basophils % 0.6 % Neutrophils # 7.8 (1.6-8.9) K/mcL Lymphocytes # 1.6 (0.6-4.6) K/mcL Monocytes # 0.6 (0.0-1.3) K/mcL Eosinophils # 0.3 (0.0-0.6) K/mcL Basophils # 0.1 (0.0-0.2) K/mcL PT 11.2 (9.4-12.1) Seconds INR 1.0 APTT 31.0 (26.0-36.0) Seconds Sodium 136 (136-145) mEq/L Potassium 4.0 (3.5-5.1) mEq/L Chloride 97 L (98-107) mEq/L Carbon Dioxide 29 (23-29) mEq/L BUN 21 (8-23) mg/dL Creatinine 1.68 H (0.70-1.30) mg/dL Est GFR ( Amer) 51 L (> 60) Est GFR (Non-Af Amer) 42 L (> 60) BUN/Creatinine Ratio 13 (6-26) Glucose 310 H (70-105) mg/dL Calculated Osmolality 297 (280-300) Calcium 10.3 (8.6-10.3) mg/dL Total Bilirubin 0.9 (0.3-1.0) mg/dL AST 21 (13-39) Units/L ALT 15 (7-52) Units/L Alkaline Phosphatase 135 H (34-104) Units/L Troponin I 0.60 H* (< 0.04) ng/mL Serum Total Protein 8.1 (6.4-8.9) g/dL Albumin 4.5 (3.5-5.7) g/dL Globulin 3.6 H (2.4-3.5) g/dL Albumin/Globulin Ratio 1.3 (1.1-2.2) /10/15 Range/Units 21:16 WBC 10.6 (4.3-11.1) K/mcL RBC 5.08 (4.19-5.50) M/mcL Hgb 14.1 (12.9-16.9) g/dL Hct 41.0 (37.5-50.1) % MCV 80.7 L (83.0-100.0) fL MCH 27.8 L (28.0-33.3) pg MCHC 34.4 (31.6-35.5) g/dL RDW 13.3 (11.5-14.5) % Plt Count 210 (140-400) K/mcL MPV 9.8 (9.4-12.4) fL Immature Gran % (0-4) % Seg Neutrophils % % Lymphocytes % % Monocytes % % Eosinophils % % Basophils % % Neutrophils # (1.6-8.9) K/mcL Lymphocytes # (0.6-4.6) K/mcL Monocytes # (0.0-1.3) K/mcL Eosinophils # (0.0-0.6) K/mcL Basophils # (0.0-0.2) K/mcL PT (9.4-12.1) Seconds INR APTT (26.0-36.0) Seconds Sodium (136-145) mEq/L Potassium (3.5-5.1) mEq/L Chloride (98-107) mEq/L Carbon Dioxide (23-29) mEq/L BUN (8-23) mg/dL Creatinine (0.70-1.30) mg/dL Est GFR ( Amer) (> 60) Est GFR (Non-Af Amer) (> 60) BUN/Creatinine Ratio (6-26) Glucose (70-105) mg/dL Calculated Osmolality (280-300) Calcium (8.6-10.3) mg/dL Total Bilirubin (0.3-1.0) mg/dL AST (13-39) Units/L ALT (7-52) Units/L Alkaline Phosphatase (34-104) Units/L Troponin I (< 0.04) ng/mL Serum Total Protein (6.4-8.9) g/dL Albumin (3.5-5.7) g/dL Globulin (2.4-3.5) g/dL Albumin/Globulin Ratio (1.1-2.2) Critical Care Time Critical Care Time: Yes Total Critical Care Time: 35 Attestation: My signature below is to certify that this patient is under my care and that I, or nurse practitioner, or a physician's blood and plasma laboratory assistant working with me, The high probability of a clinically significant, sudden or life threatening deterioration of the CV system(s) required my full and direct attention, intervention and personal management. The aggregate critical care time was 35 minutes. This time is in addition to time spent performing reported procedures but includes the following: [x] Data Review and interpretation [x] Patient assessment and monitoring of vital signs [x] Documentation [x] Medication orders and management Attestation Statement - Attestation Attestation: I examined this patient and my medical decision-making was reviewed with the Resident Physician. I agree with the documented findings, disposition and treatment plan as described except to the extent set forth below. 58 yo male presents with chest pain. started at 10 AM. sternal, nonradiating. associated with nausea without vomiting, diaphoresis, dyspnea. symptoms severe when triaged but improved while waiting to be seen. Pain now 3/10 in ED. Initial ECG has changes concerning for possible inferior WA. rpt ECG showed improvement. I spoke with Dr. Cosme regarding pt case and presentation and he reviewed the ECGs. He did not feel patient met criteria for emergent catheterization at this time with improving pain and ECG. Pt had elevated trop which was also discussed. Pt started on ASA, heparin and brillinta in ED. Will be admitted for further care and eval.
[2018-04-09] MEDS ORDERED: *HR* Ticagrelor 90 MG TABLET PO ONE (20:58)
[2018-04-09] MEDS ORDERED: Heparin 25,000 UNIT/500 ML D5W 25,000 UNIT/500 ML BAG IVC SCH (21:00)
[2018-04-09] MEDS ORDERED: *HR* Heparin 5,000 UNIT/ML VIAL IVP PRN ×2 (21:00)
[2018-04-09] MEDS ORDERED: *HR* Heparin 5,000 UNIT/ML VIAL IVP ONE (21:00)
[2018-04-09 21:03] LABS: Prothrombin Time 11.2 Seconds (9.4-12.1)
[2018-04-09 21:48] LABS: Hemoglobin 14.1 g/dL (12.9-16.9); Mean Corpuscular HGB Conc 34.4 g/dL (31.6-35.5); Mean Corpuscular Hemoglobin 27.8 pg (28.0-33.3); Mean Corpuscular Volume 80.7 fL (83.0-100.0); Mean Platelet Volume 9.8 fL (9.4-12.4); Platelet Count 210 K/mcL (140-400); Red Blood Count 5.08 M/mcL (4.19-5.50); Red Cell Distribution Width 13.3 % (11.5-14.5)
[2018-04-09] MEDS ORDERED: Naloxone 0.4 MG/ML INJ IVP PRN (23:35)
[2018-04-09] MEDS ORDERED: traMADol 50 MG TABLET PO PRN (23:36)
[2018-04-09] MEDS ORDERED: Acetaminophen 325 MG TABLET PO PRN (23:36)
--- NOTE | 2018-04-09 23:37 | Internal Med History&Physical ---
<Lovely Alva - Last Filed: 04/09/18 23:33> Date of Encounter: 04/09/18 Time of Encounter: 23:00 Internal Medicine - H&P: HPI Chief complaint: Chest pain Admitted From: Home Plans for Post Hospital Care: Home History of present illness: Mr. Love is a 58 year old male with a past medical history of CAD with stents 2 (2002) and a CABG with sextuple bypass (2009), carotid endarterectomy, hypertension, CHF, COPD, and CKD who presented to the ED with typical chest pain. Patient describes the pain as being located on the left side, worst with excertion, with associated nausea, dizziness, and weakness. Pain does not nonradiate. Denies SOB, diaphoresis, fever, vision changes, cough, Of note, patient states pain is similar to his 2 prior MIs. Patient state he has not taken his aspirin for a few days but is taking all his other medications as prescribed. He follows up with [facility]ology at the [facility]. In the ED, patient was found have an EKG showed 1-[address] elevation in the inferior leads which is a change from previous ECG. Per ED note, cardiology was consult to and recommended heparin bolus with heparin drips initiated and aspirin and Plavix given. Patient was given a dose of Brilinta and Nitro. Patient admitted to the floor for NSTEMI. ROS: Denies abd pain, diarrhea, rash, WRIGHT, dysuria. Echo 09/20/17: EF 40-55%, diastolic dysfunction NOS, mild global let ventricular systolic dysfunction. All wall segment motion normal. LHC: He states that it was in October. No record found but he is a [facility] patient. Past Med Surg Social Fam HX - Past Medical History Source: patient, old records reviewed Medical history: CHF, COPD, GERD, hyperlipidemia, hypertension, myocardial infarction Psychiatric history: depression - Past Surgical History Surgical History: angioplasty/stent (x2), coronary bypass (CABG) (Sextuple bypass) - Social History Smoking Status: Current every day smoker Smokeless Tobacco Status: No Alcohol use: none Drug use: none - Family History Father Family Member Ethnicity: Non- Living Status: Hx Family Cardiac Disorders: Yes (CHF, CAD, [place]) Hx Family Endocrine Disorder: Yes (DM) Mother Family Member Ethnicity: Non- Living Status: Hx Family Cardiac Disorders: Yes (CAD) Hx Family Endocrine Disorder: Yes (DM) Sister Family Member Ethnicity: Non- Living Status: Still Living Hx Family GI Disorders: Yes (Colitis) Internal Medicine - H&P: Meds Aspirin Enteric Coated [Aspirin EC] 81 mg PO DAILY 09/19/17 [History] Potassium Chloride [Klor-Con 10] 10 meq PO DAILY 09/19/17 [History] Sertraline [Zoloft] 150 mg PO DAILY 09/19/17 [History] Terazosin HCl 2 mg PO HS 09/19/17 [History] hydroCHLOROthiazide [Hydrochlorothiazide] 25 mg PO DAILY 09/19/17 [History] amLODIPine [Norvasc] 5 mg PO DAILY #30 tablet 09/20/17 [Rx] Omeprazole [PriLOSEC] 40 mg PO DAILY 04/09/18 [History] 3 Allergy/AdvReac Type Severity Reaction Status Date / Time nicotine AdvReac Unknown Verified 04/09/18 19:18 simvastatin [From Zocor] AdvReac Unknown Verified 04/09/18 19:18 All Systems PM: A 10-system review of systems was performed and is negative for pertinent findings except as documented above in the HPI. Review of systems: as per HPI - Constitutional Vitals: Temp Pulse Resp BP Pulse Ox 98 F 62 16 135/84 94 04/09/18 19:19 04/09/18 22:47 04/09/18 22:47 04/09/18 22:47 04/09/18 22:47 Exam: Constitutional: Alert, in no acute distress Head: Normocephalic, atraumatic Heart: Normal, regular rate and rhythm, no murmurs Lungs: Clear to auscultation, no wheezes, rales, or rhonchi Abdomen: Soft, nondistended, nontender, bowel sounds present and normal, no guarding or rigidity. Extremities: No edema, No clubbing, radial pulse +2/4, capillary refill <2sec. Skin: Skin warm and dry, no lesions, no rashes, no jaundice Neurologic: Cranial nerves II through XII grossly intact, strength 5/5 in all extremitites Psych: Cooperative with exam, good eye contact, cognitive function intact, speech clear, thought process logical, and goal directed Internal Med - H&P Results - Labs CBC & Chem 7: 04/09/18 21:16 04/09/18 19:40 - Assessment and plan (1) NSTEMI (non-ST elevated myocardial infarction) Current Visit: Yes Status: Acute Assessment and plan: PMH of CAD with CABG and stents. Patient is having typical chest pain. EKG showed ST-changes not meeting criteria for ST elevation. Initial Troponin= 0.60. Cardiology already consulted and heparin drip started. Plan: - continue heparin drip - trending troponins - cardiology consulted - continue telemetry - limited echo for the AM - Plavix 75mg daily - Nitro prn chest pain - Mg added to labs - Diet: NPO after midnight (2) CKD (chronic kidney disease) Current Visit: Yes Status: Acute Assessment and plan: Previous Creatinine 1.63 (09/14). Avoid nephrotoxic meds. Qualifiers: Chronic kidney disease stage: unspecified stage Qualified Code(s): N18.9 - Chronic kidney disease, unspecified (3) Hyperglycemia Current Visit: Yes Status: Acute Assessment and plan: Random glucose = 310. No history of diabetes. Plan: - low sliding scale -A1c (4) CHF (congestive heart failure) Current Visit: Yes Status: Acute Assessment and plan: Echo 09/14 shows diastolic CHF. Patient currently euvolemic. Will continue to monitor fluid status. Will repeat Echo. Qualifiers: Heart failure type: diastolic Heart failure chronicity: chronic Qualified Code(s): I50.32 - Chronic diastolic (congestive) heart failure (5) DVT prophylaxis Current Visit: Yes Status: Acute Assessment and plan: Heparin drip (6) HTN (hypertension) Current Visit: Yes Status: Acute Assessment and plan: Holding home meds as patient as patient has inferior lead changes and could drop BP. Hydralazine prn. Qualifiers: Hypertension type: essential hypertension Qualified Code(s): I10 - Essential (primary) hypertension - Time Spent With Patient Total time spent is greater than 50% in coordination of care (as documented) at patient's floor/unit and/or counseling patient: <Kevin Lucas - Last Filed: 04/10/18 02:30> Date of Encounter: 04/10/18 Time of Encounter: 01:30 - Constitutional Constitutional: no chills, no fever(s) - Cardiovascular Cardiovascular ROS IM: chest pain, dyspnea, dyspnea on exertion - Respiratory Respiratory: no cough, no chest congestion, no excessive phlegm production, no change in phlegm color - Constitutional Vitals: Temp Pulse Resp BP Pulse Ox 97.9 F 65 19 145/79 97 04/09/18 23:33 04/09/18 23:33 04/09/18 23:33 04/09/18 23:33 04/09/18 23:33 General appearance: Present: cooperative, A&O X 3, pleasant, no acute distress - ENT ENT exam: Present: mucous membranes dry, normal exam - Respiratory Respiratory exam: Present: CTAB. Absent: chest wall tenderness, rales, respiratory distress, rhonchi, wheezes - Cardiovascular Cardiovascular exam: Present: RRR, +S1, +S2. Absent: diastolic murmur, systolic murmur - GI/Abdominal GI/Abdominal exam: Present: normal bowel sounds, soft. Absent: hepatomegaly, splenomegaly, tenderness - Extremities Exam Extremities exam: Present: full ROM, warm, radial pulses palpable and symmetrical. Absent: calf tenderness, pedal edema - Back Exam Back exam: Present: normal inspection. Absent: CVA tenderness (L), CVA tenderness (R) Internal Med - H&P Results - Labs CBC & Chem 7: 04/09/18 21:16 04/10/18 01:23 Labs: BMP 04/10/18 01:23 Sodium 135 L Potassium 4.0 Chloride 100 Carbon Dioxide 27 BUN 22 Creatinine 1.46 H Glucose 322 H Calcium 9.9 Cardiac Enzymes 04/10/18 Range/Units 01:23 Troponin I 3.41 H* (< 0.04) ng/mL - EKG Data -: EKG Interpreted by Myself EKG shows normal: sinus rhythm - EKG Data Prior EKG available for review: yes When compared to previous EKG: there is no significant change EKG comments: 04/10/18 02:24 NSR; old inferior TN; IVCD - Diagnostic Studies Chest x-ray Status: image reviewed by me (negative) - Attending Attestation I discussed the patient [place], PMH, ROS, lab data, and exam findings with Dr. Alva. I then saw and assessed patient as well. He is currently chest pain- free. He states he feels much better than upon initial presentation. I reviewed his EKGs and noted that he has Q waves inferiorly suggesting an old inferior TN. He has flipped T waves inferiorly but no acute ST elevation that I can appreciate. Repeat troponin is elevated at 3.41, and I did discuss patient with Dr. Cosme. Given the patient is chest pain-free, we will proceed with likely heart catheterization in the morning. Patient reports to me he had a heart catheterization in October of this year at [facility]. I requested to obtain copies of the heart catheterization report from [facility] if possible. Given his chronic kidney disease, I am going to gingerly hydrate him with normal saline tonight in preparation for heart catheterization later today. I discussed this with patient and requested that should he have any developing or worsening chest pain, I am to be notified right away. Patient and nurse both voiced understanding and agreement with the plan. Other than my comments above and noted physical exam findings, I agree with Dr. Alva's assessment and plan. - Assessment and plan (1) NSTEMI (non-ST elevated myocardial infarction) Current Visit: Yes Status: Acute (2) CKD (chronic kidney disease) Current Visit: Yes Status: Acute Qualifiers: Chronic kidney disease stage: unspecified stage Qualified Code(s): N18.9 - Chronic kidney disease, unspecified (3) Hyperglycemia Current Visit: Yes Status: Acute (4) CHF (congestive heart failure) Current Visit: Yes Status: Acute Qualifiers: Heart failure type: diastolic Heart failure chronicity: chronic Qualified Code(s): I50.32 - Chronic diastolic (congestive) heart failure (5) DVT prophylaxis Current Visit: Yes Status: Acute (6) HTN (hypertension) Current Visit: Yes Status: Acute Qualifiers: Hypertension type: essential hypertension Qualified Code(s): I10 - Essential (primary) hypertension - Time Spent With Patient Total time spent is greater than 50% in coordination of care (as documented) at patient's floor/unit and/or counseling patient:
[2018-04-10] MEDS ORDERED: D5% in Water 1,000 ML IVC PRN (00:25)
[2018-04-10] MEDS ORDERED: *HR* Dextrose 50 % in Water (Syg) 50 ML SYRINGE IVP PRN (00:25)
[2018-04-10] MEDS ORDERED: Dextrose Gel 15 GM/37.5 ML TUBE PO PRN ×2 (00:25)
[2018-04-10] MEDS ORDERED: Nitroglycerin 0.4 MG TAB.SUBL SL PRN (00:27)
[2018-04-10 01:58] LABS: Calcium 9.9 mg/dL (8.6-10.3); Magnesium 1.6 mg/dL (1.6-2.6)
[2018-04-10 05:43] LABS: Heparin anti-factor XA UFH 0.26 IU/mL (0.30-0.70)
--- NOTE | 2018-04-10 05:54 | Event Note ---
Date of Encounter: 04/10/18 Time of Encounter: 01:30 - Cardiology Event Note Discussed with Dr. Lucas at 0130, patient is comfortable without chest discomfort. Continue medical management, [facility] in AM. Thank you for the consult.
[2018-04-10 06:48] LABS: Activated Partial Thrombo Time 41.5 Seconds (26.0-36.0)
[2018-04-10 08:19] LABS: Estimated Average Glucose 177 mg/dl; Hemoglobin A1C 7.8 %
[2018-04-10] MEDS: Aspirin Enteric Coated 81 MG Tablet PO SCH (08:35)
[2018-04-10] MEDS: Insulin LISPRO 300 UNITS/3 ML VIAL SQ SCH ×3 (08:36→15:50)
[2018-04-10] MEDS: 0.9 % Sodium Chloride 1,000 ML IVC SCH ×3 (08:44→22:14)
--- NOTE | 2018-04-10 09:31 | Cardiology Consult Note ---
<Car Blue - Last Filed: 04/10/18 09:27> Date of Encounter: 04/10/18 Time of Encounter: 09:27 Assessment and Plan (1) NSTEMI (non-ST elevated myocardial infarction) Current Visit: Yes Status: Acute Peak troponin 9.83. On heparin gtt. Currently chest pain free. EKG inferior changes. Recommend LHC. R/B/A discussed and pt agrees to proceed. TTE to evaluate structure and function. Continue ASA, Plavix. Start BB. Statin listed on allergy list. Will determine reaction and if can start. (2) CKD (chronic kidney disease) Current Visit: Yes Status: Chronic Creatinine 1.46 today, appears to be within baseline. Qualifiers: Chronic kidney disease stage: stage 3 (moderate) Qualified Code(s): N18.3 - Chronic kidney disease, stage 3 (moderate) (3) CAD (coronary artery disease) Current Visit: Yes Status: Chronic Hx of PCI in 2002, CABG 2009. ASA, Plavix, BB. Statin listed as allergy--will discuss. Qualifiers: Coronary Disease-Associated Artery/Lesion type: [place] artery [place] vs. transplanted heart: [place] heart Associated angina: angina presence unspecified Qualified Code(s): I25.10 - Atherosclerotic heart disease of [place] coronary artery without angina pectoris Discussion w patient/family: The assessment and plan as outlined above was discussed with the patient and/or family members who expressed understanding and agreement. All questions were answered. Thank you for involving us in the care of your patient. Please call with any questions. I will discuss all the above with Dr. Graham and make changes as necessary. History of Present Illness Consult date: 04/10/18 Requesting physician: Kevin Lucas Consult reason: NSTEMI Chief complaint: chest pain History of present illness: Mr. Love is a 58 year old male with PMH of CAD s/p PCI in 2002 and CABG in 2009 , carotid endarterectomy 10/2017, HTN, COPD, and CKD who presented to the ED with chest pain that started yesterday described as left sided, worse with exertion associated with nausea, dizziness, dyspnea, and fatigue. Currently chest pain free. Troponins 0.60, 3.41, 9.81. Cardiology consulted for further recs. Echo 09/20/17: EF 40-55%, diastolic dysfunction NOS, mild global let ventricular systolic dysfunction. All wall segment motion normal. Past Med Surg Social Fam HX - Past Medical History Medical history: cardiomyopathy, CHF, COPD, GERD, hyperlipidemia, hypertension, myocardial infarction Psychiatric history: depression - Past Surgical History Surgical History: angioplasty/stent (x2), coronary bypass (CABG) (Sextuple bypass) - Social History Smoking Status: Current every day smoker Smokeless Tobacco Status: No Alcohol use: none Drug use: none - Family History Father Family Member Ethnicity: Non- Living Status: Hx Family Cardiac Disorders: Yes (CHF, CAD, [place]) Hx Family Endocrine Disorder: Yes (DM) Mother Family Member Ethnicity: Non- Living Status: Hx Family Cardiac Disorders: Yes (CAD) Hx Family Endocrine Disorder: Yes (DM) Sister Family Member Ethnicity: Non- Living Status: Still Living Hx Family GI Disorders: Yes (Colitis) Medications and Allergies Aspirin Enteric Coated [Aspirin EC] 81 mg PO DAILY 09/19/17 [History] Potassium Chloride [Klor-Con 10] 10 meq PO DAILY 09/19/17 [History] Sertraline [Zoloft] 150 mg PO DAILY 09/19/17 [History] Terazosin HCl 2 mg PO HS 09/19/17 [History] hydroCHLOROthiazide [Hydrochlorothiazide] 25 mg PO DAILY 09/19/17 [History] amLODIPine [Norvasc] 5 mg PO DAILY #30 tablet 09/20/17 [Rx] Omeprazole [PriLOSEC] 40 mg PO DAILY 04/09/18 [History] 3 Allergy/AdvReac Type Severity Reaction Status Date / Time nicotine AdvReac Unknown Verified 04/09/18 19:18 simvastatin [From Zocor] AdvReac Unknown Verified 04/09/18 19:18 All Systems Review: The remainder of the systems were reviewed and are negative - Cardiovascular Cardiovascular: as per HPI, chest pain at rest, chest pain with exertion, diaphoresis, dyspnea at rest, dyspnea on exertion, lightheadedness - Respiratory Respiratory: dyspnea - Gastrointestinal Gastrointestinal: nausea Physical Examination Vital Signs, Last 4 Hours Temp Pulse Resp BP Pulse Ox 04/10/18 06:46 98.1 F 76 19 138/69 98 Vital Signs Temp Pulse Resp BP Pulse Ox 04/10/18 06:46 98.1 F 76 19 138/69 98 04/09/18 23:33 97.9 F 65 19 145/79 97 04/09/18 22:47 62 16 135/84 94 04/09/18 22:03 71 16 145/86 96 04/09/18 20:55 78 18 132/70 95 04/09/18 20:03 88 16 117/71 96 04/09/18 19:19 98 F 104 20 104/60 94 Intake and Output 04/09/18 04/10/18 04/10/18 23:59 07:59 15:59 Other: Weight 101.605 kg Blood Glucose* 211 General: Conversant, No Apparent Distress HEENT: Atraumatic, Normocephaly, Mucus Membranes Moist Neck: No JVD, Normal carotid pulses Cardiac: Reg Rate and Rhythm, Normal S1 and S2, No Murmur Lungs: Normal Breath Sounds, No Wheeze, Rales, Rhonchi Neuro: Alert and responsive, No focal deficits noted Abdomen: Soft, Non-Tender Skin: No rashes noted on visualized skin Musculoskeletal: No Chest Wall Tenderness Extremities: No Clubbing, No Cyanosis, No Edema, Normal Pulses Results 04/09/18 21:16 04/10/18 01:23 Lab Results 04/10/18 04/10/18 04/10/18 05:10 08:01 08:34 APTT 41.5 H 42.2 H Troponin I 9.83 H* Short CBC 04/09/18 04/09/18 Range/Units 21:16 19:40 WBC 10.6 10.4 (4.3-11.1) K/mcL Hgb 14.1 14.9 (12.9-16.9) g/dL Hct 41.0 43.3 (37.5-50.1) % Plt Count 210 234 (140-400) K/mcL Neutrophils # 7.8 (1.6-8.9) K/mcL BMP 04/10/18 04/09/18 Range/Units 01:23 19:40 Sodium 135 L 136 (136-145) mEq/L Potassium 4.0 4.0 (3.5-5.1) mEq/L Chloride 100 97 L (98-107) mEq/L Carbon Dioxide 27 29 (23-29) mEq/L BUN 22 21 (8-23) mg/dL Creatinine 1.46 H 1.68 H (0.70-1.30) mg/dL Glucose 322 H 310 H (70-105) mg/dL Calcium 9.9 10.3 (8.6-10.3) mg/dL Cardiac Enzymes 04/10/18 04/10/18 04/09/18 Range/Units 08:01 01:23 19:40 Troponin I 9.83 H* 3.41 H* 0.60 H* (< 0.04) ng/mL Liver Function 04/09/18 Range/Units 19:40 Total Bilirubin 0.9 (0.3-1.0) mg/dL AST 21 (13-39) Units/L ALT 15 (7-52) Units/L Alkaline Phosphatase 135 H (34-104) Units/L Albumin 4.5 (3.5-5.7) g/dL Impressions Chest X-Ray 04/09/18 19:22 IMPRESSION: No acute process. D/ / Richard Roblero MD / Richard Roblero MD Interpreting Provider: Richard Roblero MD Active Medications Acetaminophen (Tylenol) 650 mg PO Q6HR PRN PRN Reason: Mild Pain/Fever Stop: 10/09/18 23:37 Aspirin (Aspirin Ec) 81 mg PO DAILY [facility] Stop: 10/10/18 09:01 Last Admin: 04/10/18 08:35 Dose: 81 mg Clopidogrel Bisulfate (Plavix) 75 mg PO DAILY [facility] Stop: 10/10/18 09:01 Last Admin: 04/10/18 08:35 Dose: 75 mg Dextrose/Water (Dextrose 50% (Syg)) 25 ml IVP AD PRN PRN Reason: Hypoglycemia Stop: 10/10/18 00:26 Glucagon (Glucagen) 1 mg IM ONCE PRN PRN Reason: Hypoglycemia Stop: 10/10/18 00:26 Glucose (Gluctose) 15 gm PO ONCE PRN PRN Reason: Hypoglycemia Stop: 10/10/18 00:26 Glucose (Gluctose) 30 gm PO ONCE PRN PRN Reason: Hypoglycemia Stop: 10/10/18 00:26 Heparin Sodium (Porcine) (Heparin) 4,000 unit IVP Q6HR PRN PRN Reason: SEE COMMENTS Stop: 10/09/18 21:01 Heparin Sodium (Porcine) (Heparin) 2,000 unit IVP Q6H PRN PRN Reason: SEE COMMENTS Stop: 10/09/18 21:01 Hydralazine HCl (Hydralazine) 10 mg IVP Q6HR PRN PRN Reason: Hypertension Stop: 10/10/18 00:43 Heparin Sodium/Dextrose (Heparin 25,000 Unit/500 Ml D5w) 25,000 unit in 500 mls @ 19.915 mls/hr IVC .Q24H [facility]; 9.8 UNIT/KG/HR PRN Reason: Protocol Stop: 10/09/18 21:01 Last Admin: 04/09/18 22:13 Dose: 9.8 unit/kg/hr, 19.915 mls/hr Dextrose (Dextrose 5%) 1,000 mls @ 100 mls/hr IVC .Q10H PRN PRN Reason: HYPOGLYCEMIA Stop: 10/10/18 00:26 Sodium Chloride (0.9 % Sodium Chloride) 1,000 mls @ 75 mls/hr IVC .[id number] [facility] Stop: 10/10/18 02:31 Last Admin: 04/10/18 08:46 Dose: Not Given Insulin Human Lispro (Humalog) 0 units SQ HS [facility] PRN Reason: Protocol Stop: 10/10/18 21:01 Insulin Human Lispro (Humalog) 0 units SQ TIDAC [facility] PRN Reason: Protocol Stop: 10/10/18 07:31 Last Admin: 04/10/18 08:36 Dose: 4 units Naloxone HCl (Narcan) 0.4 mg IVP Q2MIN PRN PRN Reason: SEE COMMENTS Stop: 10/09/18 23:36 Nitroglycerin (Nitroglycerin) 0.4 mg SL Q5MIN PRN PRN Reason: Chest Pain Stop: 10/10/18 00:28 Omeprazole (Prilosec) 40 mg PO DAILY [facility] Stop: 10/11/18 09:01 Sertraline HCl (Zoloft) 150 mg PO DAILY [facility] Stop: 10/10/18 09:01 Last Admin: 04/10/18 08:36 Dose: 150 mg Tramadol HCl (Ultram) 50 mg PO Q6HR PRN PRN Reason: Moderate Pain Stop: 10/09/18 23:37 - Imaging and Cardiology Echo: report reviewed - EKG Interpretation EKG results cardiology: personally reviewed Consult Discharge Plan - Plan [facility]errals: [facility]Primary Care Provider[facility] - <Sandee Graham - Last Filed: 04/10/18 11:35> Date of Encounter: 04/10/18 - Attending Attestation I have personally performed a face to face evaluation on this patient. I have reviewed and agree with the care plan. History and Exam by me shows: NSTEMI with risin trops, s/p CABG in the past Heparin IV, currently chest pain free [facility] today R/B/A d/w patient and he agrees to proceed Assessment and Plan Discussion w patient/family: The assessment and plan as outlined above was discussed with the patient and/or family members who expressed understanding and agreement. All questions were answered. Thank you for involving us in the care of your patient. Please call with any questions. History of Present Illness History of present illness: Mr. Love is a 58 year old male All Systems Review: The remainder of the systems were reviewed and are negative Physical Examination Vital Signs, Last 4 Hours Temp Pulse Resp BP Pulse Ox 04/10/18 11:10 98.0 F 68 18 112/71 96 04/10/18 10:04 76 118/68 04/10/18 10:00 96 04/10/18 09:57 66 146/84 Results 04/09/18 21:16 04/10/18 01:23 Lab Results 04/10/18 04/10/18 04/10/18 05:10 08:01 08:34 APTT 41.5 H 42.2 H Troponin I 9.83 H*
[2018-04-10] MEDS: Metoprolol XL (24 HR) Succ 25 MG TAB.ER.24H PO SCH (10:25)
[2018-04-10] MEDS ORDERED: ISOVUE-370 200 ML INFUS..BTL IV ONE (11:08)
[2018-04-10] MEDS ORDERED: Heparin 1,000 UNITS/500 mL 500 ML ONE (11:08)
[2018-04-10] MEDS ORDERED: 0.9 % Sodium Chloride 1,000 ML ONE ×2 (11:08→11:32)
[2018-04-10] MEDS ORDERED: *HR* Heparin 10,000 UNIT/10 ML VIAL ONE (11:08)
[2018-04-10] MEDS ORDERED: Nitroglycerin 1,000 MCG/10 ML VIAL IV ONE (11:08)
[2018-04-10] MEDS ORDERED: *HR* Midazolam HCl 2 MG/2 ML VIAL ONE ×2 (11:31→11:55)
[2018-04-10] MEDS ORDERED: *HR* FentaNYL (PF) 100 MCG/2 ML VIAL ONE (11:31)
--- NOTE | 2018-04-10 11:47 | Pre-Sedation Evaluation ---
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
--- NOTE | 2018-04-10 12:38 | Invasive Diagnostic Lab Proc ---
Name: Srinivas Love Date of Study: 04/10/2018 Date: 1960 Ht: 74.0in Medical Record#: [id number] Age: 58 Wt: 222.45lb Gender: Male BSA: 2.27 Order #: [id number] BMI: 28.55 Physicians Procedure Physician: Barrie Cosme MD, [facility] Referring MD: Referring MD: Staff Name Position Time In [facility], [facility] RT (R) Monitor 11:34 AM Javon Hughes RN Scrub 11:34 AM Larry De Oliveira RN Process Tank Tender 11:34 AM Indications Indication Non-Stemi Procedures Performed Procedure L HRT ART/GRFT ANGIO Pre-Procedure Checklist Informed consent is complete signed and on chart. H&P is on chart. ID band is on and ID verified with patient. Patient NPO for procedure The procedure was described for the patient and questions were answered. Blood Pressure: 138/69 ECG is on chart. Rhythm: NSR Plan of Care Patient will tolerate the procedure without complications. Adequate level of comfort will be maintained. Hemodynamics will remain stable Patient will recover from procedure without complications. Respiratory function will be maintained. Cardiac rhythm will remain stable. Patient temperature will be maintained. Patient and/or family have verbalized understanding of the procedure. Patient Education Chief Complaint/Reason for Test: Cardiac Cath Developmental Category: Geriatric (65+ years) Developmentally Appropriate for Age: Yes Learning Barriers: None Education Needs: Procedure Education Method: Verbal Information Taught: Cardiac Cath Educational Evaluation: Able to repeat information Intravenous Access Time IV Size Location DC'd Fluid/Drip Rate Units RN 11:16 AM Started with 22g 1 " Rt Antecubital 0.9NaCl 25 ml/hr Larry De Oliveira RN Allergies nicotine simvastatin Vital Signs Time BP (mmHg) HR (bpm) O2 Sat. RR (bpm) LOC 138 / 69 76 98 % 16 5 = Fully awake and oriented or at pre-proc level 11:40 AM 153 / 81 65 98 % 11:45 AM 145 / 90 71 94 % 11:50 AM 141 / 77 74 95 % 11:55 AM 126 / 75 67 95 % 12:00 PM 135 / 82 64 95 % 12:05 PM 134 / 78 71 93 % 12:10 PM 142 / 86 63 96 % 12:15 PM 156 / 99 73 96 % 12:20 PM 172 / 99 71 97 % Procedural Medications Time Medication Dose Units Method Given By 11:41 AM Oxygen 2 L/min nasal cannula Larry De Oliveira RN 11:41 AM Versed 2 mg Intravenous Larry De Oliveira RN 11:41 AM Fentanyl 50 mcg Intravenous Larry De Oliveira RN 11:54 AM Versed 2 mg Intravenous Larry De Oliveira RN 11:54 AM Fentanyl 25 mcg Intravenous Larry De Oliveira RN 11:57 AM Lidocaine 2% 18 ml Subcutaneous Barrie Cosme MD, [facility] ASA Classification: CLASS II- Mild systemic disease (i.e. well-controlled diabetes, hypertension, asthma, cigarette smoking) Enedelia Score Preprocedure Postprocedure Activity 2- Moves 4 extremities sustained head lift Activity 2- Moves 4 extremities sustained head lift Circulation 2- SBP +/= 20 points of pre-anesthetic level Circulation 2- SBP +/= 20 points of pre-anesthetic level Consciousness 2- Awake and alert oriented x 3 Consciousness 2- Awake and alert oriented x 3 O2 Saturation 2- Able to maintain O2 satruation of 92% on room air O2 Saturation 2- Able to maintain O2 satruation of 92% on room air Respiratory 2- Able to deep breathe and cough well Respiratory 2- Able to deep breathe and cough well Total Score 10 Total Score 10 Contrast Agent: Isovue Diagnostic Contrast: 75 ml Total Contrast: 75 ml Fluoro Dose: 476 mGy Procedure Log Time Note Enter By 11:19 AM CathStat 11:30 AM Pt arrived to hospital laboratory technician 1 at 11:30 cedwards 11:34 AM Patient charges- Angio tray pack, Navilyst 3mm J, Pulse Oximetry and ACIST tubing and transducer tsites 11:34 AM Physician arrived 11:34 tsites 11:34 AM Meet and greet completed tsites 11:34 AM Sign in performed according to hospital policy. tsites 11:34 AM Procedure start 11:34 tsites 11:34 AM Anjana Tejada RT (R) Position: Monitor Time in: 11:34 tsites 11:34 AM Javon Hughes RN Position: Scrub Time in: 11:34 tsites 11:34 AM Larry De Oliveira RN Position: Process Tank Tender Time in: 11:34 tsites 11:39 AM Vitals capture started with the following parameters, Patient=Adult, Interval=5 min, Initial Iuryffyf=303 mmHg, Deflation Rate=3 mmHg, Cuff placed on Right Arm 11:40 AM HR=65 bpm, UACD=232/81 mmhg, SpO2=98 % 11: AM Time: 11:41 Oxygen on at 2 L/min per nasal cannula by Larry De Oliveira RN tsites 11:41 AM Clinical Presentation: Non-STEMI tsites 11:41 AM Hair removed from procedure site in procedure lab using clippers. Bilateral groin prepped with Chloraprep by Anjana Tejada), then patient was draped. Skin intact. tsites 11:41 AM Time: 11:41 Versed 2 mg Intravenous Given by Larry De Oliveira RN tsites 11:42 AM Time: 11:41 Fentanyl 50 mcg Intravenous Given by Larry De Oliveira RN tsites 11:44 AM Recorded ECG: HR=76 Condition=Condition 1 11:45 AM HR=71 bpm, TYHN=481/90 mmhg, SpO2=94 % 11:50 AM HR=74 bpm, OUFZ=498/77 mmhg, SpO2=95.0 % 11:54 AM Time out performed according to hospital policy tsites 11:54 AM Time: 11:54 Versed 2 mg Intravenous Given by Larry De Oliveira RN tsites 11:54 AM Time: 11:54 Fentanyl 25 mcg Intravenous Given by Larry De Oliveira RN tsites 11:55 AM HR=67 bpm, FPEC=563/75 mmhg, SpO2=95 % 11:57 AM Time: 11:57 18 ml Lidocaine 2% to right groin Subcutaneous Given by Barrie Cosme MD, [facility] tsites 11:57 AM Access obtained by percutaneous puncture. 5Fr 10cm Terumo [place] sheath placed in right Femoral artery. [id number] tsites 11:58 AM 0.035 145cm Navilyst 3mmJ wire [id number] tsites 11:58 AM 5Fr FR 4 catheter inserted over the wire [facility] tsites 11:59 AM RCA angiography performed in multiple views. tsites 12:00 PM Recorded Pressure: Ao, HR=65, Condition=Condition 1 (Aorta) Ao 157/94/119 12:00 PM HR=64 bpm, LVFU=366/82 mmhg, SpO2=95 % 12:00 PM SVG to the 1st OM angio performed in multiple views. tsites 12:00 PM Recorded Pressure: Ao, HR=74, Condition=Condition 1 (Aorta) Ao 122/88/105 12:01 PM Lesion found in Proximal RCA. Pre Stenosis: 100 Pre CARMEL Flow: tsites 12:01 PM SVG to the 1st Diagonal angio performed in multiple views. tsites 12:05 PM HR=71 bpm, QJUD=500/78 mmhg, SpO2=93.0 % 12:06 PM 0.035 260cm Navilyst 3mmJ wire [id number] tsites 12:06 PM 5Fr IM catheter inserted over the wire [id number] tsites 12:08 PM Left ADRIANE to the LAD angio performed in multiple views. tsites 12:09 PM 5Fr FL 4 catheter inserted over the wire DNC tsites 12:10 PM HR=63 bpm, SLIM=193/86 mmhg, SpO2=96 % 12:10 PM LCA angiography performed in multiple views. tsites 12:11 PM Recorded Pressure: Ao, HR=65, Condition=Condition 1 (Aorta) Ao 145/88/114 12:11 PM Lesion found in Proximal LAD. Pre Stenosis: 100 Pre CARMEL Flow: tsites 12:12 PM Lesion found in Proximal Circumflex. Pre Stenosis: 95 Pre CARMEL Flow: tsites 12:12 PM Lesion found in Mid Circumflex. Pre Stenosis: 100 Pre CARMEL Flow: tsites 12:13 PM Coronary Dominance: right tsites 12:13 PM 5Fr Pigtail catheter inserted over the wire DN tsites 12:13 PM Catheter selectively placed in left ventricle tsites 12:13 PM Bolus angiogram of left Ventricle complete: 12 ml/sec for a total of 20 mls tsites 12:14 PM Recorded Pressure: LV, HR=68, Condition=Condition 1 (Left Ventricle) LV 163/4/16 12:15 PM HR=73 bpm, ZLPM=381/99 mmhg, SpO2=96.0 % 12:15 PM Recorded Pressure: LV, Ao, HR=69, Condition=Condition 1 (Left Ventricle) LV 163/17/14, (Aorta) Ao 148/86/113 12:16 PM Bolus angiogram of left Aortic root complete: 12 ml/sec for a total of 20 mls tsites 12:17 PM Catheter removed tsites 12:17 PM Bolus angiogram of right Femoral complete: 2 ml/sec for a total of 4 mls tsites 12:17 PM Proximal Left Anterior Descending Coronary Artery with 100% stenosis. If graft is supplying this territory, 0 % stenosis. tsites 12:18 PM Circumflex, Obtuse Marginal, Left Posterior Descending, and Left Posterolateral Coronary Arteries with 100 % stenosis. If graft is supplying this area, 0 % stenosis tsites 12:18 PM Right Coronary, Right Posterior Descending Arteries with Right Posterolateral and Acute Marginal branches with 100 % stenosis. If graft is supplying this area, 0 % stenosis tsites 12:19 PM Procedure completed at 12:19 tsites 12:19 PM Did you address CARMEL flow and Dominance? Yes tsites 12:19 PM Sign out completed: Radiation Dose 476 mGy Fluoro Time: 5.7 Isovue 370 - 200ml contrast 75 ml given by Barrie Cosme MD, [facility]. Complications: NoneCardiac Rehab Consult needed: NoConfirmed administered medications: Yes tsites 12:19 PM Isovue 370 - 200ml,1 Bottle(s) used. tsites 12:19 PM Arterial sheath pulled, Mynx closure device used and was Successful S/N. tsites 12:19 PM Estimated Blood Loss: minimal tsites 12:19 PM Post ECG NSR tsites 12:20 PM Post Blood Pressure 156/99 tsites 12:20 PM 12:20 Post Pulses Bilateral DP & PT 2+ tsites 12:20 PM Information taught Cardiac Cath and Mynx tsites 12:20 PM Education needs Procedure, Plan of Care, and Responsibilities of Patient in Care tsites 12:20 PM Learning barriers :None tsites 12:20 PM Education Methods Verbal tsites 12:20 PM Education evaluation Able to repeat information tsites 12:20 PM HR=71 bpm, BCBK=178/99 mmhg, SpO2=97.0 % 12:20 PM Site status No bleeding/hematoma - Rt Groin as reported by Javon Hughes RN at 12:20 tsites 12:20 PM Opsite applied tsites 12:25 PM Report given to Sofia BUCKLEY Pt taken to ED south Room #28. 12:25 tsites 12:25 PM Delay to floor No tsites 12:26 PM Patient out of room: 12:25 tsites Complications Complication None Hemodynamics Pressures Site Systolic/A Wave Diastolic/V Wave Mean AO 157 94 119 AO 122 88 105 AO 145 88 114 LV 163 4 16 LV 163 17 14 AO 148 86 113 Post Procedure Information Blood Pressure: 156/99 mmHg Rhythm: NSR Post procedural instructions were given Closure Device Time Device Success/Fail 04/10/2018 12:27:00 PM MynxGrip Successful Site Checks Time Location Status Staff Sheath In? Note 12:20 PM Rt Groin No bleeding/hematoma Javon Hughes RN Pulses Time Site Pre-Procedure Post-Procedure Note 04/10/2018 11:16:00 AM Bilateral DP & PT 2+ 04/10/2018 11:16:00 AM Bilateral radial 2+ 12:20:00 PM Bilateral DP & PT 2+ Updated by [facility], RT (R) on 04/10/2018 12:30:39 PM [facility], RT electronically signed on 04/10/2018 12:31:03 PM with status of Final
[2018-04-10] MEDS ORDERED: Ondansetron 4 MG/2 ML VIAL IVP PRN (13:58)
--- NOTE | 2018-04-10 14:06 | Internal Med Progress Note ---
Date of Encounter: 04/10/18 Time of Encounter: 14:08 - Assessment and plan (1) NSTEMI (non-ST elevated myocardial infarction) Current Visit: Yes Status: Acute Assessment and plan: PMH of CAD with CABG and stents. Patient is having typical chest pain. EKG showed ST-changes not meeting criteria for ST elevation. Initial Troponin= 0.60 then increased to 9.83 . Cardiology already consulted and heparin drip started. LHC was done today Plan: - continue telemetry - limited echo pending - Plavix 75mg daily LHC done earlier today, recommendations pending. (2) CKD (chronic kidney disease) Current Visit: Yes Status: Chronic Assessment and plan: Previous Creatinine 1.63 (09/14). today 1.4, which is patient baseline Close monitoring post-cath. Qualifiers: Chronic kidney disease stage: stage 3 (moderate) Qualified Code(s): N18.3 - Chronic kidney disease, stage 3 (moderate) (3) Hyperglycemia Current Visit: Yes Status: Acute Assessment and plan: Random glucose = 310. No history of diabetes. Plan: - low sliding scale -A1c : 7.8% - patient diabetic, There was A1C 7.0% on 09/20/2017, will discuss with patient if he's aware of diabetes - Diabetic diet Glucose so far runs 211-322 today - Start patient on basal insuin Levemir 10 units tonight - Consider PO therapy as outpatient. (4) CHF (congestive heart failure) Current Visit: Yes Status: Acute Assessment and plan: Echo 09/14 shows diastolic CHF. Patient currently euvolemic. Will continue to monitor fluid status Repeat echo pending. Qualifiers: Heart failure type: diastolic Heart failure chronicity: chronic Qualified Code(s): I50.32 - Chronic diastolic (congestive) heart failure (5) DVT prophylaxis Current Visit: Yes Status: Acute Assessment and plan: Heparin drip (6) HTN (hypertension) Current Visit: Yes Status: Acute Assessment and plan: On admission Holding home meds as patient as patient has inferior lead changes and could drop BP. Hydralazine prn. Now resumed meds since BP increased Qualifiers: Hypertension type: essential hypertension Qualified Code(s): I10 - Essential (primary) hypertension - Time Spent With Patient Total time spent is greater than 50% in coordination of care (as documented) at patient's floor/unit and/or counseling patient: - Subjective Interval history: Patient returned from [facility]. No complaints. Last episode of CP was yesterday afternoon. Denies SOB, palpitations, n/v, fevers/chills. - Constitutional Vitals: Temp Pulse Resp BP Pulse Ox 98.0 F 68 16 157/109 93 04/10/18 11:10 04/10/18 13:43 04/10/18 13:43 04/10/18 13:43 04/10/18 13:43 General appearance: Present: cooperative, A&O X 3, pleasant, no acute distress Exam: Does not sit fully up for my axam because of typical LE pain from cath. - Head Head exam: Present: atraumatic, normocephalic - Eye Eye exam: Present: PERRL, conjuntiva pink, sclera anicteric Pupils: Present: PERRL - Neck Neck exam general surgery: Present: supple, trachea midline. Absent: lymphadenopathy - Respiratory Respiratory exam: Present: CTAB. Absent: accessory muscle use, rales, rhonchi, wheezes - Cardiovascular Cardiovascular exam: Present: RRR, +S1, +S2. Absent: diastolic murmur, gallop, rubs, systolic murmur - GI/Abdominal GI/Abdominal exam: Present: normal bowel sounds, soft, no peritoneal signs. Absent: distended, tenderness - Extremities Exam Extremities exam: Present: warm, radial pulses palpable and symmetrical. Absent : calf tenderness, cyanotic, pedal edema - Neurological Exam Neurological exam: Present: CN II-XII intact, oriented X3, no focal deficits. Absent: pronater drift, facial droop, speech deficit - Skin Skin exam: Present: dry, intact Internal Medicine: Result - Labs CBC & Chem 7: 04/09/18 21:16 04/10/18 01:23 Labs: Cardiac Enzymes 04/10/18 Range/Units 08:01 Troponin I 9.83 H* (< 0.04) ng/mL - ABG Interpretation ABG results: PT/INR, D-dimer PT 11.2 Seconds (9.4-12.1) 04/09/18 19:40 - VTE Reasons for not Prescribing Prophylaxis: Not indicated-Anticoagulated or INR therapeutic Consult Discharge Plan - Plan [facility]errals: [facility]Primary Care Provider[facility] -
--- NOTE | 2018-04-10 16:29 | Electrocardiograph Report ---
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
--- NOTE | 2018-04-10 16:30 | Electrocardiograph Report ---
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
[2018-04-10] MEDS: *HR* Heparin 5,000 UNIT/ML VIAL SQ SCH (17:11)
[2018-04-10] MEDS ORDERED: Insulin DETEMIR 100 UNIT/ML X5UNITS SQ SCH (21:00)
[2018-04-10] MEDS ORDERED: Insulin LISPRO 300 UNITS/3 ML VIAL SQ SCH (21:00)
[2018-04-11 05:50] LABS: Hematocrit 40.6 % (37.5-50.1); Mean Corpuscular HGB Conc 34.5 g/dL (31.6-35.5); Mean Corpuscular Hemoglobin 27.8 pg (28.0-33.3); Mean Corpuscular Volume 80.6 fL (83.0-100.0); Mean Platelet Volume 9.8 fL (9.4-12.4); Platelet Count 169 K/mcL (140-400); Red Blood Count 5.04 M/mcL (4.19-5.50); Red Cell Distribution Width 13.1 % (11.5-14.5)
[2018-04-11 05:58] LABS: Calcium 9.5 mg/dL (8.6-10.3); Potassium 4.6 mEq/L (3.5-5.1)
[2018-04-11] MEDS: *HR* Heparin 5,000 UNIT/ML VIAL SQ SCH (06:45)
[2018-04-11] MEDS: Insulin LISPRO 300 UNITS/3 ML VIAL SQ SCH ×2 (08:19→11:58)
[2018-04-11] MEDS: Metoprolol XL (24 HR) Succ 25 MG TAB.ER.24H PO SCH (08:19)
[2018-04-11] MEDS: Aspirin Enteric Coated 81 MG Tablet PO SCH (08:19)
[2018-04-11] MEDS ORDERED: amLODIPine 5 MG TABLET PO SCH (09:00)
[2018-04-11] MEDS ORDERED: Isosorbide MONOnitrate (24 HR) 30 MG TAB.ER.24H PO SCH (09:00)
[2018-04-11 11:13] VITALS: BP 144/83
--- NOTE | 2018-04-11 12:27 | Cardiology Progress Note ---
Date of Encounter: 04/11/18 Time of Encounter: 12:26 Assessment and Plan (1) NSTEMI (non-ST elevated myocardial infarction) Current Visit: Yes Status: Acute Peak troponin 10.94. S/P [facility] yesterday with severe 3 vessel CAD. 2/4 patent bypass grafts--SVG-Diag 1 occluded and SVG-prox RCA occluded. Final report pending. No intervention. Medical management was recommended. Imdur added. Pt denies chest pain overnight. TTE EF 35-40%. Global and regional LV systolic dysfunction. Moderate MR, Mild TR , mild OH. Continue ASA, Plavix. Started BB, Imdur and Statin. Statin listed on allergy list. Discussed with pt, denies knowing of any reaction. Atorvastatin started. Right femoral access site healing well. No bleeding, hematoma or ecchymosis. Restrictions discussed. Cardiology signing off. Reconsult PRN. Will coordinate outpt follow-up in 1 week. Cardiac rehab ordered. (2) CKD (chronic kidney disease) Current Visit: Yes Status: Chronic Creatinine within baseline. Qualifiers: Chronic kidney disease stage: stage 3 (moderate) Qualified Code(s): N18.3 - Chronic kidney disease, stage 3 (moderate) (3) CAD (coronary artery disease) Current Visit: Yes Status: Chronic Hx of PCI in 2002, CABG 2009. ASA, Plavix, BB. Started Statin and Imdur. Qualifiers: Coronary Disease-Associated Artery/Lesion type: [place] artery [place] vs. transplanted heart: [place] heart Associated angina: angina presence unspecified Qualified Code(s): I25.10 - Atherosclerotic heart disease of [place] coronary artery without angina pectoris (4) Bright red blood per rectum Current Visit: Yes Status: Acute Reports single episode of severe abdominal cramping, bowel movement with bright red blood yesterday evening. H&H stable. Management per primary team. (5) Leukocytosis Current Visit: Yes Status: Acute WBC 16.5. Afebrile. Management per primary team. Qualifiers: Leukocytosis type: unspecified Qualified Code(s): D72.829 - Elevated white blood cell count, unspecified (6) Cardiomyopathy Current Visit: Yes Status: Acute ICMP EF 35-40%. [facility] 2/4 patent grafts, medical management. Euvolemic on exam. CHF teaching discussed. Continue BB. ACEi not started currently due to CKD. Recommend checking outpt BMP and if renal function remains stable, add ACEi as outpt. Qualifiers: Cardiomyopathy type: ischemic Qualified Code(s): I25.5 - Ischemic cardiomyopathy (7) CKD (chronic kidney disease), stage III Current Visit: Yes Status: Chronic Creatinine 1.53 today, slightly worse than yesterday (1.46) but within baseline range. Consider starting ACEi as outpt for CMP if renal function remains stable. Discussion w patient/family: The assessment and plan as outlined above was discussed with the patient and/or family members who expressed understanding and agreement. All questions were answered. Thank you for involving us in the care of your patient. Please call with any questions. I will discuss all the above with Dr. Graham and make changes as necessary. Subjective Principal diagnosis: NSTEMI Interval history: Peak troponin 10.94. S/P [facility] yesterday with severe 3 vessel CAD. 2/4 patent bypass grafts--SVG-Diag 1 occluded and SVG-prox RCA occluded. Final report pending. TTE resulted. EF 35-40%. Global and regional LV systolic dysfunction. Moderate MR, Mild TR, mild OH. Pt denies chest pain or dyspnea overnight. He does report severe abdominal cramping yesterday evening with a bowel movement that had bright red blood. Hx of hemorrhoids. HGB stable. Objective Vital Signs, Last 4 Hours Temp Pulse Resp BP Pulse Ox 04/11/18 11:12 98.5 F 74 17 144/83 97 Vital Signs Temp Pulse Resp BP Pulse Ox 04/11/18 11:12 98.5 F 74 17 144/83 97 04/11/18 07:32 98.5 F 79 18 145/75 96 04/11/18 03:58 98.6 F 76 18 118/58 96 04/10/18 23:52 98.3 F 78 18 163/91 98 04/10/18 21:34 97.4 F L 73 18 173/85 96 04/10/18 15:40 98.2 F 69 15 145/72 96 04/10/18 14:58 62 18 145/72 96 04/10/18 13:43 68 16 157/109 93 04/10/18 13:13 68 16 161/87 91 04/10/18 13:12 65 16 174/95 95 04/10/18 12:45 68 18 170/100 95 Intake and Output 04/10/18 04/11/18 04/11/18 23:59 07:59 15:59 Intake Total 1250 / 1250 700 / 700 120 / 120 Output Total 0 / 0 Balance 1250 / 1250 700 / 700 120 / 120 Intake: IV Fluids 1000 / 1000 700 / 700 0.9 % Sodium Chloride 1,000 ML 1000 / 1000 700 / 700 @ 75 mls/hr IVC .[id number] Rx #:[id number] Oral 250 / 250 120 / 120 Output: Urine 0 / 0 Other: # Voids 2 Weight 99.053 kg Blood Glucose* 210 163 Patient Weight 04/11/18 23:59 Weight 99.053 kg General: Conversant, No Apparent Distress HEENT: Atraumatic, Normocephaly, Mucus Membranes Moist Neck: No JVD, Normal carotid pulses Cardiac: Reg Rate and Rhythm, Normal S1 and S2, No Murmur Lungs: Normal Breath Sounds, No Wheeze, Rales, Rhonchi Neuro: Alert and responsive, No focal deficits noted Abdomen: Soft, Non-Tender Skin: Other (right femoral access site healing well. No bleeding, hematoma or ecchymosis noted.) Musculoskeletal: No Chest Wall Tenderness Extremities: No Clubbing, No Cyanosis, No Edema, Normal Pulses Results 04/11/18 05:00 04/11/18 05:00 Lab Results 04/10/18 04/10/18 04/11/18 16:16 16:16 05:00 WBC 16.5 H D Hgb 14.0 Hct 40.6 Plt Count 169 APTT 29.1 Sodium Potassium Chloride Carbon Dioxide BUN Creatinine Glucose Calcium Troponin I 10.94 H* 04/11/18 05:00 WBC Hgb Hct Plt Count APTT Sodium 138 Potassium 4.6 Chloride 102 Carbon Dioxide 28 BUN 18 Creatinine 1.53 H Glucose 154 H Calcium 9.5 Troponin I Short CBC 04/11/18 Range/Units 05:00 WBC 16.5 H D (4.3-11.1) K/mcL Hgb 14.0 (12.9-16.9) g/dL Hct 40.6 (37.5-50.1) % Plt Count 169 (140-400) K/mcL BMP 04/11/18 Range/Units 05:00 Sodium 138 (136-145) mEq/L Potassium 4.6 (3.5-5.1) mEq/L Chloride 102 (98-107) mEq/L Carbon Dioxide 28 (23-29) mEq/L BUN 18 (8-23) mg/dL Creatinine 1.53 H (0.70-1.30) mg/dL Glucose 154 H (70-105) mg/dL Calcium 9.5 (8.6-10.3) mg/dL Cardiac Enzymes 04/10/18 Range/Units 16:16 Troponin I 10.94 H* (< 0.04) ng/mL Impressions Echocardiogram 04/10/18 09:26 Impressions: LVEF 35-40%. Global and regional LV systolic function (see Diagram below). Mildly dilated left ventricle. Moderate mitral regurgitation. Mild tricuspid regurgitation. Mild pulmonic regurgitation. No pulmonary hypertension. Left Ventricular Wall Motion: Rest Echo Findings The apex, apical inferior, mid inferior, apical anterior, mid anterior, basal anterior, apical septal, mid inferior septal, basal inferior septal, apical lateral, mid anterior lateral, basal anterior lateral, mid anterior septal, mid inferior lateral and basal anterior septal hernandez were hypokinetic. The basal inferior and basal inferior lateral hernandez were akinetic. Findings: Study Quality * Technically adequate exam. ECG Findings * Normal sinus rhythm. Left Ventricle * LVEF 35-40%. * Mildly dilated left ventricle. * Diastolic not well evaluated. Right Ventricle * RV size is normal. Function not well evaluated. TD velocities not performed. Left Atrium * Mildly dilated left atrium. Right Atrium * Normal right atrial size. Mitral Valve * Normal mitral valve structure. * No mitral stenosis. * Moderate mitral regurgitation. Aortic Valve * No aortic regurgitation. * Trileaflet aortic valve. * Mildly thickened aortic valve leaflets. * No aortic stenosis. Tricuspid Valve * Normal tricuspid valve structure. * Mild tricuspid regurgitation. * Estimated RA pressure is 3 mmHg. * Estimated RVSP is 27 mmHg. * No pulmonary hypertension. Pulmonic Valve * Pulmonic valve is not well visualized. * No pulmonic stenosis. * Mild pulmonic regurgitation. Pulmonary Artery * Pulmonary artery not well visualized. Aorta * Normally sized aortic root. Pericardium * There is no pericardial effusion present. Interatrial Septum * No evidence of PFO by color Doppler. IVC * Normal IVC dimensions and inspiratory collapse. Active Medications Acetaminophen (Tylenol) 650 mg PO Q6HR PRN PRN Reason: Mild Pain/Fever Stop: 10/09/18 23:37 Amlodipine Besylate (Norvasc) 5 mg PO DAILY [facility] PRN Reason: Protocol Stop: 10/11/18 09:01 Last Admin: 04/11/18 08:19 Dose: 5 mg Aspirin (Aspirin Ec) 81 mg PO DAILY [facility] Stop: 10/10/18 09:01 Last Admin: 04/11/18 08:19 Dose: 81 mg Atorvastatin Calcium (Lipitor) 40 mg PO HS [facility] Stop: 10/11/18 21:01 Clopidogrel Bisulfate (Plavix) 75 mg PO DAILY [facility] Stop: 10/10/18 09:01 Last Admin: 04/11/18 08:19 Dose: 75 mg Dextrose/Water (Dextrose 50% (Syg)) 25 ml IVP AD PRN PRN Reason: Hypoglycemia Stop: 10/10/18 00:26 Glucagon (Glucagen) 1 mg IM ONCE PRN PRN Reason: Hypoglycemia Stop: 10/10/18 00:26 Glucose (Gluctose) 15 gm PO ONCE PRN PRN Reason: Hypoglycemia Stop: 10/10/18 00:26 Glucose (Gluctose) 30 gm PO ONCE PRN PRN Reason: Hypoglycemia Stop: 10/10/18 00:26 Heparin Sodium (Porcine) (Heparin) 5,000 unit SQ Q12HCO [facility] Stop: 10/10/18 18:01 Last Admin: 04/11/18 06:45 Dose: 5,000 unit Hydralazine HCl (Hydralazine) 10 mg IVP Q6HR PRN PRN Reason: Hypertension Stop: 10/10/18 00:43 Dextrose (Dextrose 5%) 1,000 mls @ 100 mls/hr IVC .Q10H PRN PRN Reason: HYPOGLYCEMIA Stop: 10/10/18 00:26 Sodium Chloride (0.9 % Sodium Chloride) 1,000 mls @ 75 mls/hr IVC .[id number] [facility] Stop: 10/10/18 02:31 Last Infusion: 04/11/18 06:43 Dose: 75 mls/hr Insulin Detemir (Levemir) 10 unit SQ HS [facility] Stop: 10/10/18 21:01 Last Admin: 04/10/18 22:00 Dose: 10 unit Insulin Human Lispro (Humalog) 0 units SQ HS [facility] PRN Reason: Protocol Stop: 10/10/18 21:01 Last Admin: 04/10/18 22:04 Dose: 2 units Insulin Human Lispro (Humalog) 0 units SQ TIDAC [facility] PRN Reason: Protocol Stop: 10/10/18 07:31 Last Admin: 04/11/18 11:58 Dose: 2 units Isosorbide Mononitrate (Imdur) 30 mg PO DAILY [facility] Stop: 10/11/18 09:01 Last Admin: 04/11/18 09:26 Dose: 30 mg Metoprolol Succinate (Toprol Xl) 12.5 mg PO DAILY [facility] Stop: 10/10/18 09:46 Last Admin: 04/11/18 08:19 Dose: 12.5 mg Naloxone HCl (Narcan) 0.4 mg IVP Q2MIN PRN PRN Reason: SEE COMMENTS Stop: 10/09/18 23:36 Nitroglycerin (Nitroglycerin) 0.4 mg SL Q5MIN PRN PRN Reason: Chest Pain Stop: 10/10/18 00:28 Last Admin: 04/10/18 09:56 Dose: 0.4 mg Omeprazole (Prilosec) 40 mg PO DAILY [facility] Stop: 10/11/18 09:01 Last Admin: 04/11/18 08:18 Dose: 40 mg Ondansetron HCl (Zofran) 4 mg IVP Q6HR PRN; Protocol PRN Reason: Nausea And Vomiting Stop: 10/10/18 13:59 Sertraline HCl (Zoloft) 150 mg PO DAILY [facility] Stop: 10/10/18 09:01 Last Admin: 04/11/18 08:19 Dose: 150 mg Tramadol HCl (Ultram) 50 mg PO Q6HR PRN PRN Reason: Moderate Pain Stop: 10/09/18 23:37 - Imaging and Cardiology Echo: report reviewed Cardiac cath: report reviewed - EKG Interpretation EKG results cardiology: other (12 hr tele AVG HR 78, SR, no significant pauses or arrhythmias) - VTE Reasons for not Prescribing Prophylaxis: Not indicated-Anticoagulated or INR therapeutic Consult Discharge Plan - Plan Additional Instructions: RISK FACTORS: STOP SMOKING: If you smoke, STOP. Smoking or tobacco use significantly increases your risk of heart disease because nicotine causes the arteries to narrow or constrict. It also causes fats to stick to the artery. Your chances of having a heart attack are greatly increased if you continue to smoke. For more information, call the education line for smoking cessation 9-760-IHPYVIG EAT A LOW FAT/CHOLESTEROL/SODIUM DIET: This diet may help reduce your chances of having a heart attack. LIFTING: Avoid lifting anything more than 10 pounds for 5-7 days Prior to straining, laughing, sneezing and/or coughing, apply manual pressure directly over insertion site. ACTIVITY: You may walk or climb stairs as tolerated You can resume sexual activity as tolerated In general, you are encouraged to engage in a minimum of 30 minutes or more of moderate intensity physical activity, such as brisk walking, daily or at least 3 -4 times weekly BATHING Do not submerge the site into water (bath tub, hot tub, swimming pool) for 1 week. This can be a source for infection into the blood stream. You may shower after 24 hours SITE CARE: After 24 hours, you may remove the dressing and leave the site open to air. Keep the site clean and dry. Clean gently and pat dry. You can expect bruising and tenderness that gradually resolve within a week or two. Return to work as instructed per your physician Resume driving as instructed per physician Keep all scheduled follow up appointments Resume medications as instructed IMPORTANT: If prescribed a Platelet Aggregation Inhibitor such as, Plavix, Brilinta or Effient: Duration of therapy is minimum one year These medications are often used in combination with Aspirin in prevention of future heart attacks Never discontinue unless consult with your Psychological Operations Specialist STROKE (CVA) Risk factors for a stroke are: Age, cigarette smoking, diabetes, excessive alcohol consumption, family history, high blood pressure, overweight, physical inactivity, prior stroke, heart attack, diagnosis of carotid artery stenosis or other artery disease. Warning signs: Sudden numbness or weakness of the face, arm or leg; especially on one side of the body, sudden confusion, trouble speaking or understanding, sudden trouble seeing in one or both eyes, sudden trouble walking, dizziness, loss of balance or coordination, sudden severe headache with no cause. Call 911 or go to the Emergency Room. CONGESTIVE HEART FAILURE: If you have been diagnosed with Congestive Heart Failure (CHF) and your symptoms return, make an appointment with your physician Weigh yourself daily. Notify your physician if you have a weight gain of two or more pounds in one day or five or more pounds in one week. If you experience any difficulty breathing, please call 911 BLEEDING: Although the risk of bleeding is minimal, it can happen. If you have any bleeding from the site, apply firm pressure above the puncture site for 10-15 minutes. If the bleeding does not stop, continue manual pressure and call 911 Contact your physician if: You develop a fever greater than 101 degrees Fahrenheit Your site becomes reddened or has any drainage You have an increase in pain or burning at the site or if a large knot forms at the site. If you experience chest pain, shortness of breath, dizziness, or extreme tiredness, stop the activity and rest. Please notify your physicians office if you experience any of these symptoms and they are not relieved by rest please call 911! [facility]errals: [facility] Care Provider[facility] -
--- NOTE | 2018-04-11 14:15 | Discharge Summary ---
Orders not resulted at time of discharge: Pending orders 04/10/18 09:25 CL Cardiac Catheterization [CL] Routine Date of Encounter: 04/12/18 Time of Encounter: 14:00 - Discharge Diagnosis (1) NSTEMI (non-ST elevated myocardial infarction) Priority: Primary Status: Acute (2) CKD (chronic kidney disease) Priority: Secondary Status: Chronic Qualifiers: Chronic kidney disease stage: stage 3 (moderate) Qualified Code(s): N18.3 - Chronic kidney disease, stage 3 (moderate) Code(s): N18.9 - Chronic kidney disease, unspecified SNOMED Code(s): 432505551 (3) Hyperglycemia Priority: Secondary Status: Acute (4) CHF (congestive heart failure) Priority: Primary Status: Acute Qualifiers: Heart failure type: diastolic Heart failure chronicity: chronic Qualified Code(s): I50.32 - Chronic diastolic (congestive) heart failure (5) DVT prophylaxis Priority: Secondary Status: Acute (6) HTN (hypertension) Priority: Secondary Status: Acute Qualifiers: Hypertension type: essential hypertension Qualified Code(s): I10 - Essential (primary) hypertension Hospital course: Mr. Love is a 58 year old male with a past medical history of CAD with stents 2 (2002) and a CABG (2009), carotid endarterectomy, hypertension, CHF, COPD, and CKD who presented to the ED with typical chest pain. Patient describes the pain as being located on the left side, worst with excertion, with associated nausea, dizziness, and weakness. Pain does not nonradiate. Denies SOB, diaphoresis, fever, vision changes, cough, Of note, patient states pain is similar to his 2 prior MIs. Patient state he has not taken his aspirin for a few days but is taking all his other medications as prescribed. He follows up with [facility]ology at the [facility].In the ED, patient was found have an EKG showed 1-[address] elevation in the inferior leads which is change from previous ECG. Per cardiology was consult to and recommended heparin bolus with heparin drips initiated and aspirin and Plavix given. Patient was given a dose of Brilinta and Nitro. Patient admitted to the floor for NSTEMI.Echo 09/20/17: EF 40-55%, diastolic dysfunction NOS, mild global let ventricular systolic dysfunction. All wall segment motion normal.LHC: done on October. No record found but [facility]. Peak troponin 10.94. S/P LH yesterday with severe 3 vessel CAD. 2 /4 patent bypass grafts--SVG-Diag 1 occluded and SVG-prox RCA occluded. Final report pending. No intervention. Medical management was recommended. Imdur added.Pt denies chest pain overnight.TTE EF 35-40%. Global and regional LV systolic dysfunction. Moderate MR, Mild TR, mild VT. Continue ASA, Plavix. Started BB, Imdur and Statin.Statin listed on allergy list. Discussed with pt, denies knowing of any reaction. Atorvastatin started.Right femoral access site healing well. No bleeding, hematoma or ecchymosis. Restrictions discussed.outpt follow-up in 1 week. Cardiac rehab ordered.ICMP EF 35-40%. [facility] 2/4 patent grafts , medical management.regarding CHF Euvolemic on exam. CHF teaching discussed.Continue BB. ACEi not started currently due to CKD. Recommend checking outpt BMP, Had follow up with nephrology , Follow up with nephrology . NANCIE , Need BRI for CKD as will as Systolic HF if renal function remains stable. Patient has history of diabetes mellitus currently on metformin counseling patient about holding metformin for 48 hours after cardiac catheterization, with his blood sugar is elevated with order glipizide patient follow-up with family doctor for further monitoring of his blood sugar. Patient has history of rectal bleeding secondary to hemorrhoids patient had colonoscopy done 3 years ago based on patient report colonoscopy was normal. Patient H&H stable. Patient had chronic constipation with add laxative counseling patient follow-up with sofa cover inspector for possible need of EGD, add hydrocortisone subsequently to help with hemorrhoids, patient need further monitoring of his hemoglobin as well as may need EGD to be done by sofa cover inspector as an outpatient. Counseling patient about risk of anticoagulant. Patient had leukocytosis currently he is afebrile, patient denies any cough denies any fever or chills denies any dysuria, no signs of infection. Counseling patient to follow-up with family doctor with CBC in 1 week for further monitoring report for any fever or chills - Time Spent with Patient Total time spent providing and/or coordinating discharge services: Greater than 30 minutes - Discharge Medications Prescriptions: Atorvastatin [Lipitor] 40 mg PO HS #30 tablet Clopidogrel [Plavix] 75 mg PO DAILY 30 Days #30 tablet Hydrocortisone [Anusol-Hc] 30 gm TP BID PRN #60 crm.pe.rustam PRN Reason: other Isosorbide MONOnitrate (24 HR) [Imdur] 30 mg PO DAILY #30 tab.er.24h Metoprolol Succinate [Toprol Xl] 25 mg PO DAILY #30 tab.er.24h Home Medications: Aspirin Enteric Coated [Aspirin EC] 81 mg PO DAILY 09/19/17 [History] Sertraline [Zoloft] 150 mg PO DAILY 09/19/17 [History] Terazosin HCl 2 mg PO HS 09/19/17 [History] amLODIPine [Norvasc] 5 mg PO DAILY #30 tablet 09/20/17 [Rx] Omeprazole [PriLOSEC] 40 mg PO DAILY 04/09/18 [History] Acetaminophen [Tylenol] 650 mg PO Q6HR PRN tablet 04/11/18 [Rx] Atorvastatin [Lipitor] 40 mg PO HS #30 tablet 04/11/18 [Rx] Clopidogrel [Plavix] 75 mg PO DAILY 30 Days #30 tablet 04/11/18 [Rx] Hydrocortisone [Anusol-Hc] 30 gm TP BID PRN #60 crm.pe.rustam 04/11/18 [Rx] Isosorbide MONOnitrate (24 HR) [Imdur] 30 mg PO DAILY #30 tab.er.24h 04/11/18 [ Rx] Metoprolol Succinate [Toprol Xl] 25 mg PO DAILY #30 tab.er.24h 04/11/18 [Rx] Nitroglycerin 0.4 mg SL Q5MIN PRN tab.subl 04/11/18 [Rx] Allergies/Adverse Reactions: 3 Allergy/AdvReac Type Severity Reaction Status Date / Time nicotine AdvReac Unknown Verified 04/09/18 19:18 simvastatin [From Zocor] AdvReac Unknown Verified 04/09/18 19:18 Date of admission: 04/10/18 02:15 [facility] care physician: [facility] Consults: 04/11/18 09:20 Consult to Cardiac Rehabilitation-Phase1 [CONS] Routine Comment: Reason for Consult: NSTEMI Call Completed: No Discharging clinician: Jean-Pierre Lomax Anticipated date of discharge: 04/11/18 - Constitutional Vitals: Temp Pulse Resp BP Pulse Ox 98.5 F 74 17 144/83 97 04/11/18 11:12 04/11/18 11:12 04/11/18 11:12 04/11/18 11:12 04/11/18 11:12 General appearance: Present: cooperative, A&O X 3, pleasant, no acute distress - Head Head exam: Present: atraumatic, normocephalic - Neck Neck exam general surgery: Present: supple, trachea midline. Absent: lymphadenopathy - Respiratory Respiratory exam: Present: CTAB. Absent: accessory muscle use, rales, rhonchi, wheezes - Cardiovascular Cardiovascular exam: Present: RRR, +S1, +S2. Absent: diastolic murmur, gallop, rubs, systolic murmur - GI/Abdominal GI/Abdominal exam: Present: normal bowel sounds, soft, no peritoneal signs. Absent: distended, tenderness - Extremities Exam Extremities exam: Present: warm, radial pulses palpable and symmetrical. Absent : calf tenderness, cyanotic, pedal edema - Patient Status Disposition: Home, Self-Care Condition: Critical Functional capacity at discharge: independent ambulation Overall status at discharge: patient is back to baseline - Discharge Instructions [facility] With: [facility] Care Provider[facility] - 04/18/18 2:30 pm (Please follow up as schedule..) Additional Instructions: RISK FACTORS: STOP SMOKING: If you smoke, STOP. Smoking or tobacco use significantly increases your risk of heart disease because nicotine causes the arteries to narrow or constrict. It also causes fats to stick to the artery. Your chances of having a heart attack are greatly increased if you continue to smoke. For more information, call the education line for smoking cessation 2-849-RBNJJXB EAT A LOW FAT/CHOLESTEROL/SODIUM DIET: This diet may help reduce your chances of having a heart attack. LIFTING: Avoid lifting anything more than 10 pounds for 5-7 days Prior to straining, laughing, sneezing and/or coughing, apply manual pressure directly over insertion site. ACTIVITY: You may walk or climb stairs as tolerated You can resume sexual activity as tolerated In general, you are encouraged to engage in a minimum of 30 minutes or more of moderate intensity physical activity, such as brisk walking, daily or at least 3 -4 times weekly BATHING Do not submerge the site into water (bath tub, hot tub, swimming pool) for 1 week. This can be a source for infection into the blood stream. You may shower after 24 hours SITE CARE: After 24 hours, you may remove the dressing and leave the site open to air. Keep the site clean and dry. Clean gently and pat dry. You can expect bruising and tenderness that gradually resolve within a week or two. Return to work as instructed per your physician Resume driving as instructed per physician Keep all scheduled follow up appointments Resume medications as instructed IMPORTANT: If prescribed a Platelet Aggregation Inhibitor such as, Plavix, Brilinta or Effient: Duration of therapy is minimum one year These medications are often used in combination with Aspirin in prevention of future heart attacks Never discontinue unless consult with your Solder Sprayer STROKE (CVA) Risk factors for a stroke are: Age, cigarette smoking, diabetes, excessive alcohol consumption, family history, high blood pressure, overweight, physical inactivity, prior stroke, heart attack, diagnosis of carotid artery stenosis or other artery disease. Warning signs: Sudden numbness or weakness of the face, arm or leg; especially on one side of the body, sudden confusion, trouble speaking or understanding, sudden trouble seeing in one or both eyes, sudden trouble walking, dizziness, loss of balance or coordination, sudden severe headache with no cause. Call 911 or go to the Emergency Room. CONGESTIVE HEART FAILURE: If you have been diagnosed with Congestive Heart Failure (CHF) and your symptoms return, make an appointment with your physician Weigh yourself daily. Notify your physician if you have a weight gain of two or more pounds in one day or five or more pounds in one week. If you experience any difficulty breathing, please call 911 BLEEDING: Although the risk of bleeding is minimal, it can happen. If you have any bleeding from the site, apply firm pressure above the puncture site for 10-15 minutes. If the bleeding does not stop, continue manual pressure and call 911 Contact your physician if: You develop a fever greater than 101 degrees Fahrenheit Your site becomes reddened or has any drainage You have an increase in pain or burning at the site or if a large knot forms at the site. If you experience chest pain, shortness of breath, dizziness, or extreme tiredness, stop the activity and rest. Please notify your physicians office if you experience any of these symptoms and they are not relieved by rest please call 911! - Diet and Activity Activity: resume usual activities as tolerated Diet: diabetic diet, low fat, low cholesterol - VTE Reasons for not Prescribing Prophylaxis: Not indicated-Anticoagulated or INR therapeutic
== END 2018-04-11 16:44 | disposition home or self-care (01) | DRG 281 ==
LOC: 2SOUTHHOLD 19:11 → EMEROO 19:11 → 2SOUTHHOLD 23:05 → 2ANU 04-10 18:09
PROVIDERS: ADMIT Internal Medicine; ATTEND Internal Medicine